=== PATIENT | female | born 1955 | race Caucasian/White ===

== ENCOUNTER → 2019-05-31 08:12 | Outpatient (CLI) | payer SELFPAY ==
--- NOTE | 2019-05-31 08:25 | CT_ITS ---
PROCEDURE: CT HEART W CALCIUM SCORE Patient Age:63Y CLINICAL HISTORY: SCREENING family history of diabetes heart disease AFib. COMPARISON: No exams were available for comparison TECHNIQUE: Limited axial images obtained through the heart for the purposes of calcium scoring All CT scans at the facility use one or more dose reduction, viz: automated exposure control, ma/kV adjustment per patient size (including targeted exams where dose is matched to indication, i.e. head), or iterative reconstruction technique. FINDINGS: Total coronary artery calcium score = 214 This reflects moderate plaque burden and correlates with high cardiovascular disease CVD risk Also note majority of this dense calcified plaque is at significant location involves the origin and proximal LAD and is origin with dense calcified plaque extending from LAD through junction to the left main Right coronary with with a dense focus of plaque proximal and another more inferiorly. Most likely a right-dominant heart but no additional significant findings no pericardial effusion b Calcified granuloma at the right middle lobe anteriorly IMPRESSION: Total Coronary Artery Calcium Score = 214 This reflects moderate plaque burden;... And correlates with High cardiovascular disease CVD risk Dictated by: Nicko Nicole MD 06/01/2019 23:57 Electronically signed by Nicko Nicole MD in [facility] 06/01/2019 23:57
== END ==
PROVIDERS: PCP Nurse Practitioner Family; Visit Provider Internal Medicine Cardiovascular Disease
DX: Z13.6 Encounter for screening for cardiovascular disorders (principal)
CPT/HCPCS: 75571

== ENCOUNTER → 2019-06-24 15:48 | Outpatient (CLI) | payer MEDICARE, SELFPAY ==
--- NOTE | 2019-06-24 15:53 | MM_ITS ---
PROCEDURE: MM DIG SCREENING MAMM BI W/CAD CLINICAL INDICATION: SCREENING There is no personal or family history of breast cancer. COMPARISON: Digital Mammography, Screening=Y from 05/23/2013 MAMMO DIAGNOSTIC BILATERAL from 05/22/2015 DMSB DIG MAMM-SCREEN XENIA W/CAD from 06/08/2017 TECHNIQUE: Standard CC and MLO images were obtained. R2 CAD reviewed. FINDINGS: Moderate diffuse fibroglandular densities are seen in the subareolar regions and central portions of both breasts. Are scattered benign-appearing micro and macrocalcifications. There are stable fatty replaced nodes low in right axillary tail. There are similar somewhat low-lying fatty replaced nodes axillary tail left breast. There is no new or suspicious lesion in either breast and no suspicious microcalcifications. IMPRESSION: Fibrofatty parenchyma with no suspicious lesions seen BI-RAD Category: 2 Benign Finding(s) FOLLOW-UP: 1YR 1 Year Follow-up (A letter has been sent to the patient regarding results of the study.) Dictated by: Dr. Anton Suarez MD 06/26/2019 19:[address] Anton Suarez MD in [facility] 06/26/2019 19:29
== END ==
PROVIDERS: PCP Nurse Practitioner Family; Referring Provider Family Medicine; Visit Provider Family Medicine
DX: Z12.31 Encounter for screening mammogram for malignant neoplasm of breast (principal)
CPT/HCPCS: 77067

== ENCOUNTER → 2020-02-06 08:57 | Outpatient (CLI) | payer MEDICARE, SELFPAY ==
--- NOTE | 2020-02-06 09:01 | XR_ITS ---
PROCEDURE: XR DEXA AXIAL SKELETON CLINICAL HISTORY: POST MENOPAUSAL COMPARISON: No exams were available for comparison FINDINGS: Right femoral neck density is 0.677 grams/centimeters sq with a T-score -1 point, osteopenia Left femoral neck density is 0.795 g cm squared with a T-score -0.5, normal L1-L4 density is 0.894 g cm sq with T-score -1.4, osteopenia IMPRESSION: Osteopenia with moderate fracture risk. Treatment advised. Suggest follow-up exam 2 years Dictated by: Primo Davenport MD 02/06/2020 14:12 Electronically signed by Primo Davenport MD in [facility] 02/06/2020 14:12
== END ==
PROVIDERS: PCP Nurse Practitioner Family; Visit Provider Nurse Practitioner Family
DX: Z13.820 Encounter for screening for osteoporosis (principal); Z78.0 Asymptomatic menopausal state
CPT/HCPCS: 77080

== ENCOUNTER → 2021-02-26 08:16 | Outpatient (CLI) | payer MEDICARE, SELFPAY ==
--- NOTE | 2021-02-26 08:21 | MM_ITS ---
PROCEDURE INFORMATION: Exam: MG Screening 3D Mammography Exam date and time: 02/26/2021 8:21 AM Age: 65 years old Clinical indication: Encounter for screening mammogram for malignant neoplasm of breast TECHNIQUE: Imaging protocol: Screening tomosynthesis and 2D mammography including computer-aided detection (CAD) when performed. COMPARISON: 1. MG MM DIG SCREENING MAMM BI W/CAD 06/24/2019 4:21 PM 2. MG DMSB DIG MAMM-SCREEN XENIA W/CAD 06/08/2017 9:00 AM FINDINGS: MAMMOGRAPHY: Breast composition: The breast tissue is composed of scattered areas of fibroglandular density. Mass: None. Architectural distortion: None. Calcifications: No suspicious calcifications. Asymmetric density: None. Skin thickening: None. Axillary adenopathy: None. IMPRESSION: No mammographic evidence of malignancy. Annual screening is recommended unless otherwise clinically indicated. ASSESSMENT: BI-RADS Category 1: Negative
== END ==
PROVIDERS: PCP Nurse Practitioner Family; Visit Provider Nurse Practitioner Family
DX: Z12.31 Encounter for screening mammogram for malignant neoplasm of breast (principal)
CPT/HCPCS: 77063; 77067

== ENCOUNTER → 2021-04-06 16:39 | Outpatient (CLI) | payer MEDICARE, SELFPAY ==
--- NOTE | 2021-04-06 16:40 | MR_ITS ---
PROCEDURE: MR HEAD/BRAIN WO CON CLINICAL INDICATION: LEFT SIDED HEADACHE COMPARISON: No exams were available for comparison TECHNIQUE: Routine multiplanar multi echo sequences are performed without gadolinium enhancement. FINDINGS: No midline shift, mass effect, intracranial hemorrhage, or hydrocephalus is evident. The cerebellopontine angles, cerebellum, and brainstem have an unremarkable appearance. No large aneurysms apparent. Unremarkable white matter signal intensity. Partial empty sella noted as a normal variant. The optic chiasm, corpus callosum and craniocervical junction have an unremarkable appearance. No mastoid effusion or sinus air-fluid level. Unremarkable appearing orbits IMPRESSION: No acute intracranial findings. Negative MRI of the brain without contrast. Dictated by: Primo Davenport MD 04/07/2021 06:41 Primo Davenport MD in [facility] 04/07/2021 06:41
== END ==
PROVIDERS: PCP Nurse Practitioner Family; Visit Provider Nurse Practitioner Family
DX: R51.9 Headache, unspecified (principal)
CPT/HCPCS: 70551

== ENCOUNTER → 2022-04-18 11:03 | Outpatient (CLI) | payer MEDICARE, SELFPAY | PROVIDERS: PCP Nurse Practitioner Family; Visit Provider Nurse Practitioner Family | DX: U07.1 COVID-19 (principal); R50.9 Fever, unspecified | CPT/HCPCS: C9803; U0003; U0005 ==

== ENCOUNTER → 2022-06-14 09:23 | Outpatient (POV) | payer MEDICARE, SELFPAY | PROVIDERS: Visit Provider Dermatology | DX: Z00.00 Encounter for general adult medical examination without abnormal findings (principal) ==

== ENCOUNTER → 2023-06-21 09:00 | Outpatient (CLI) | payer MEDICARE, SELFPAY ==
[2023-06-21 11:29] LABS: Hemoglobin A1C 7.1 % (4.0-6.0)
[2023-06-21 12:20] LABS: Alanine Aminotransferase 20 U/L (12-78); Albumin Level 4.4 g/dl (3.5-5.0); Albumin/Globulin Ratio 1.9 (1.1-1.8); Alkaline Phosphatase 141 U/L (38-126); Anion Gap 16.3 mEq/L (5-15); Aspartate Amino Transferase 30 U/L (14-36); Bilirubin,Total 0.5 mg/dl (0.2-1.3); Blood Urea Nitrogen 14 mg/dl (7-17); Calcium 9.3 mg/dl (8.4-10.2); Carbon Dioxide 25 mmol/L (22.0-30.0); Chloride 101 mmol/L (98-107); Chol/HDL Ratio 1.8 (1-3.5); Cholesterol 163 mg/dl (140-200); Estimated Glomerular Filt Rate 122 ml/min (>60); GFR (African American) 148 ML/MIN (>60); Globulin 2.3 g/dL (1.3-3.2); Glucose 159 mg/dl (74-100); HDL Cholesterol 90 mg/dl (40-60); Potassium 4.3 mmoL/L (3.5-5.1); Sodium 138 mmol/L (136-145); Total Protein,Serum 6.7 g/dl (6.3-8.2); Triglycerides 51 mg/dl (30-150); VLDL Cholesterol 10 mg/dL (0-40)
[2023-06-21 12:31] LABS: Direct LDL Cholesterol 77.74 mg/dL (100-129)
[2023-06-21 12:49] LABS: Thyroid Stimulating Hormone 0.82 uIU/mL (0.465-4.68)
== END ==
PROVIDERS: PCP Nurse Practitioner Family; Visit Provider Nurse Practitioner Family
DX: E11.9 Type 2 diabetes mellitus without complications (principal); E78.5 Hyperlipidemia, unspecified; Z79.84 Long term (current) use of oral hypoglycemic drugs
CPT/HCPCS: 80053; 80061; 82043; 83036; 84443

== ENCOUNTER → 2023-07-11 09:33 | Outpatient (CLI) | payer MEDICARE, SELFPAY ==
--- NOTE | 2023-07-11 09:34 | MM_ITS ---
PROCEDURE INFORMATION: Exam: MG Bilateral Screening 3D Mammography Exam date and time: 07/11/2023 9:37 AM Age: 68 years old Clinical indication: Screening examination TECHNIQUE: Imaging protocol: Bilateral Screening tomosynthesis and 2D mammography including computer-aided detection (CAD) when performed. COMPARISON: 1. MG MM DIG SCREENING MAMM BI W/CAD 02/26/2021 8:26 AM 2. MG MM DIG SCREENING MAMM BI W/CAD 06/24/2019 4:21 PM FINDINGS: MAMMOGRAPHY: Breast composition: There are scattered areas of fibroglandular density. Mass: None. Architectural distortion: None. Calcifications: No suspicious calcifications. Asymmetric density: None. Skin thickening: None. Axillary adenopathy: None. IMPRESSION: No mammographic evidence of malignancy. Annual screening is recommended unless otherwise clinically indicated. ASSESSMENT: BI-RADS Category 1: Negative
== END ==
PROVIDERS: PCP Nurse Practitioner Family; Visit Provider Nurse Practitioner Family
DX: Z12.31 Encounter for screening mammogram for malignant neoplasm of breast (principal)
CPT/HCPCS: 77063; 77067

== ENCOUNTER 2023-09-25 12:35 | Outpatient (CLI) | payer MEDICARE, SELFPAY ==
[2023-09-25 13:15] LABS: Alanine Aminotransferase 22 U/L (12-78); Albumin Level 4.4 g/dl (3.5-5.0); Albumin/Globulin Ratio 2.1 (1.1-1.8); Alkaline Phosphatase 133 U/L (38-126); Anion Gap 14.1 mEq/L (5-15); Aspartate Amino Transferase 26 U/L (14-36); Bilirubin,Total 0.5 mg/dl (0.2-1.3); Blood Urea Nitrogen 14 mg/dl (7-17); Calcium 9.3 mg/dl (8.4-10.2); Carbon Dioxide 24 mmol/L (22.0-30.0); Chloride 104 mmol/L (98-107); Chol/HDL Ratio 2.5 (1-3.5); Cholesterol 188 mg/dl (140-200); Estimated Glomerular Filt Rate 122 ml/min (>60); GFR (African American) 148 ML/MIN (>60); Globulin 2.1 g/dL (1.3-3.2); Glucose 155 mg/dl (74-100); HDL Cholesterol 75 mg/dl (40-60); Potassium 4.1 mmoL/L (3.5-5.1); Sodium 138 mmol/L (136-145); Total Protein,Serum 6.5 g/dl (6.3-8.2); Triglycerides 87 mg/dl (30-150); VLDL Cholesterol 17 mg/dL (0-40)
[2023-09-25 13:26] LABS: Direct LDL Cholesterol 87.36 mg/dL (100-129)
[2023-09-25 20:48] LABS: Hemoglobin A1C 7.5 % (4.0-6.0)
== END 2023-09-25 23:59 ==
LOC: LAB.DROPOF 12:36
PROVIDERS: PCP Nurse Practitioner Family; Visit Provider Nurse Practitioner Family
DX: E11.9 Type 2 diabetes mellitus without complications (principal); R31.9 Hematuria, unspecified; E78.5 Hyperlipidemia, unspecified; I10 Essential (primary) hypertension; Z79.84 Long term (current) use of oral hypoglycemic drugs; Z79.899 Other long term (current) drug therapy; B96.89 Other specified bacterial agents as the cause of diseases classified elsewhere
CPT/HCPCS: 80053; 80061; 82043; 83036; 87086

== ENCOUNTER 2023-10-10 12:45 | Outpatient (CLI) | payer MEDICARE, SELFPAY ==
[2023-10-10 12:47] LABS: Microscopic, Urine URINE MICROSCOPIC (MICROSCOPIC)
[2023-10-10 13:14] LABS: Appearance,Urine CLEAR (Clear); Bilirubin,Urine Negative (Negative); Blood, Urine Negative (Negative); Color,Urine YELLOW (Yellow); Glucose,Urine (UA) 3+ (Negative); Ketones,Urine Negative (Negative); Leukocyte Esterase,Urine Negative (Negative); Nitrate,Urine Negative (Negative); PH,Urine 6.5 (5.0-8.5); Protein,Urine Negative (Negative); Specific Gravity, Urine 1.015 (1.005-1.030); Urobilinogen,Urine 0.2 EU/dl (0.2)
[2023-10-10 13:37] LABS: Bacteria,Urine Trace /lpf; Microalbumin < 6.000 mg/L (0-16.7); Squamous Epithelial Cell,Urine Occasional #/hpf (0-5)
[2023-10-10 13:41] LABS: Creatinine,Urine Random 33 mg/dL (Not Estab.)
== END 2023-10-10 23:59 ==
PROVIDERS: PCP Nurse Practitioner Family; Visit Provider Nurse Practitioner Family
DX: E11.9 Type 2 diabetes mellitus without complications (principal); R30.0 Dysuria; B96.89 Other specified bacterial agents as the cause of diseases classified elsewhere; Z79.84 Long term (current) use of oral hypoglycemic drugs
CPT/HCPCS: 81001; 82043; 82570; 87086

== ENCOUNTER 2023-11-21 07:20 | Emergency (ER) | payer MEDICARE, SELFPAY ==
[2023-11-21 07:22] VITALS: BP 195/94; PULSE 120; RESP 15; TEMP 36.7; O2SAT 98
[2023-11-21 07:32] LABS: Microscopic, Urine URINE MICROSCOPIC (MICROSCOPIC)
--- NOTE | 2023-11-21 07:32 | CT_ITS ---
FINAL REPORT TECHNIQUE: Axial images through the abdomen and pelvis were performed without contrast. This study was performed with techniques to keep radiation doses as low as reasonably achievable, (ALARA). Individualized dose reduction techniques using automated exposure control or adjustment of mA and/or kV according to the patient's size were employed. CLINICAL HISTORY: L flank/groin pain, dysuria, h/o stones FINDINGS: ABDOMEN: There is calcified granuloma in the right middle lobe. There is mild bronchiectasis in the right lung base. The heart size is normal. Limited images of the liver are unremarkable. There is sludge in the gallbladder. There are calcified granulomas in the spleen. No adrenal mass is identified. The aorta is normal in caliber. There is no significant free fluid or adenopathy. There are multiple bilateral nonobstructing kidney stones measuring up to 11 mm. Periampullary duodenal diverticulum is seen measuring 4 cm in greatest dimension. There is an obstructing stone in the distal left ureter measuring up to 3 mm well seen on image 92 of series 3. There is mild to moderate left hydronephrosis. PELVIS: The appendix is normal. The urinary bladder is decompressed. There is no significant free fluid or adenopathy. IMPRESSION: Left hydronephrosis secondary to an obstructing distal left ureteral stone. Bilateral nephrolithiasis. Reviewed, Interpreted and Dictated by Rinku Thorpe MD Transcribed by Kriss Mcpherson Authenticated and [facility]
[2023-11-21 07:37] LABS: Bilirubin,Urine Negative (Negative); Blood, Urine 3+ (Negative); Glucose,Urine (UA) 3+ (Negative); Ketones,Urine 1+ (Negative); Leukocyte Esterase,Urine Negative (Negative); Nitrate,Urine Negative (Negative); PH,Urine 5.5 (5.0-8.5); Protein,Urine Negative (Negative); Urobilinogen,Urine 0.2 EU/dl (0.2)
--- NOTE | 2023-11-21 07:38 | HMH.EDGENADL ---
Discharge Plan Disposition Patient Disposition: Home, Self-Care Condition: Good Prescriptions Prescriptions: New ketorolac 10 mg tablet 10 mg PO Q8H PRN (Reason: pain) 1 Days Qty: 14 0RF oxycodone 5 mg tablet 5 mg PO Q6H PRN (Reason: pain) Qty: 12 0RF ondansetron HCl 4 mg tablet 4 mg PO Q8H PRN (Reason: nausea and vomiting) 4 Days Qty: 12 0RF tamsulosin [Flomax] 0.4 mg capsule 0.4 mg PO DAILY Qty: 7 0RF No Action metformin 1,000 mg tablet 1,000 mg PO BID pioglitazone 30 mg tablet 30 mg PO DAILY metoprolol succinate 25 mg tablet extended release 24 hr PO simvastatin 10 mg tablet 10 mg PO DAILY Jardiance 10 mg tablet 10 mg PO DAILY 90 Days Qty: 90 3RF (DME) Dexcom G7 Sensor Device See Rx Instructions .ROUTE .MEDSUPPLY Qty: 9 3RF Rx Instructions: As directed, change every 10 days Referrals Follow up/Referrals: Dorothy Donahue APRN [Primary Care Provider] - See instructions Activity Restrictions/Add. Instructions Additional Instructions/Restrictions: You were evaluated in the emergency department today. At this time, you were found to have a kidney stone on your left. It is 3 mm, so it is likely to pass on its own. Please return to an emergency department right away if you have any symptoms such as fever greater than 100.4 ?F, significant worsening of pain, or intractable nausea and vomiting. Please drink plenty of fluids and make sure that you are staying hydrated. 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 You may also take Tylenol in addition to these medications as needed for pain. Do not drive or operate heavy machinery while taking oxycodone, as it is a narcotic chronic pain medication. I have arranged for you to see Dr. Emerson in clinic tomorrow 11/22/23 at 1:30 pm in [place]. [address] [place] [address] [address], [place] [address] Clinical Impressions Clinical Impression: Calculus of left ureter Instructions Patient Instructions: DI for Kidney Stones Discharge ED Provider: Tawnya Lopez General Adult HPI General Chief complaint: Abdominal Pain Stated complaint: pelvic pain, pain when urinating Time Seen by Provider: 11/21/23 07:27 Mode of Arrival: Ambulatory Source of Information: Patient Limitations: No Limitations Description of Symptoms (Recalled from ER Triage Doc. by RN): pt reports left groin pain began last night. pt reports no history of kidney stones. pain radiates down into thigh. History of Present Illness HPI narrative: This patient is a 68-year-old female with a history of hypertension, hyperlipidemia, diabetes, and ANGELY presenting to the emergency department for evaluation with concern for left flank pain radiating around to her groin. Patient states that this started last night and woke her up from sleep. She notes that she thought maybe it was musculoskeletal pain, but she was unable to get comfortable and was unable to sleep as a result of this. She also notes that she has had urinary frequency as well as nonbloody diarrhea. She states the pain was so severe that she had an episode of emesis. She also was experiencing chills. No true fevers noted. No cough, congestion, or other concerns noted. She did not take any medications prior to arrival. Related Data Home Medications Medication Instructions Recorded Confirmed metformin 1,000 mg tablet 1,000 mg PO BID 06/21/23 10/10/23 metoprolol succinate 25 mg mg PO 06/21/23 10/10/23 tablet,extended release 24 hr pioglitazone 30 mg tablet 30 mg PO DAILY 06/21/23 10/10/23 simvastatin 10 mg tablet 10 mg PO DAILY 06/21/23 10/10/23 Previous Rx's Medication Instructions Recorded blood-glucose sensor (Dexcom G7 #9 ea 10/16/23 Sensor device) empagliflozin 10 mg tablet 10 mg PO DAILY 90 days #90 tabs 10/16/23 (Jardiance) ketorolac 10 mg tablet 10 mg PO Q8H PRN pain 1 day #14 11/21/23 tabs ondansetron HCl 4 mg tablet 4 mg PO Q8H PRN nausea and 11/21/23 vomiting 4 days #12 tabs oxycodone 5 mg tablet 5 mg PO Q6H PRN pain #12 tabs 11/21/23 tamsulosin 0.4 mg capsule (Flomax) 0.4 mg PO DAILY #7 caps 11/21/23 Allergies Allergy/AdvReac Type Severity Reaction Status Date / Time iodine [IODINE] Allergy Mild Verified 10/10/23 09:09 shellfish derived Allergy Unknown ANAPHYLAXIS Verified 10/10/23 09:09 [From SHELLFISH (FOOD/DRUG)] From SHELLFISH (FOOD/DRUG) Allergy Unknown ANAPHYLAXIS Uncoded 10/10/23 09:09 [facility] Disclaimer: The information contained in this section may have been updated after the patient was seen, as this information can be updated by other users. Medical History Plantar fasciitis Diabetes mellitus type 2, controlled Sleep apnea Surgical History History of hysterectomy History of Family History Family/Other Cancer Diabetes Social History Smoking Status: Never smoker alcohol intake: never current occupational status: retired Travel in the last 8 weeks: None ROS Obtained: Yes All systems reviewed & no additional complaints except as documented Physical Exam General General appearance: alert and in no apparent distress Head Head exam: atraumatic and normocephalic Eye Eye exam: Present normal appearance, PERRL and EOMI ENT ENT exam: Present normal exam, normal oropharynx, mucous membranes moist and normal external ear exam Neck Neck exam: Present normal inspection, full ROM and trachea midline; Absent tenderness Chest Chest inspection: Present normal inspection and symmetric chest wall rise; Absent tenderness Respiratory Respiratory exam: Present normal lung sounds bilaterally; Absent respiratory distress, wheezes, stridor or accessory muscle use Cardiovascular Cardiovascular exam: Present regular rate and normal rhythm Abdominal Exam Abdominal exam: Present soft; Absent distention, tenderness or guarding Extremities Exam Extremities exam: Present normal inspection, full ROM and normal capillary refill; Absent tenderness or edema Back Exam Back exam: Present normal inspection and full ROM; Absent tenderness Neurological Exam Neurological exam: Present alert, oriented X3, CN II-XII intact and normal gait; Absent motor sensory deficit Psychiatric Psychiatric exam: Present normal affect and normal mood Skin Skin exam: Present warm and dry Medical Decision Making Medical Records Medical records reviewed: Yes I reviewed the patient's medical records. Bill Inquiry Pt receiving controlled substance: No Vital Signs: 11/21/23 07:22 11/21/23 08:00 11/21/23 08:30 Temperature 98.1 F Temperature Source Oral Pulse Rate 111 H 106 H Pulse Rate [Left Radial] 120 H Respiratory Rate 15 Blood Pressure 132/65 126/67 Blood Pressure [Right Arm] 195/94 H Blood Pressure Mean 105 95 Blood Pressure Mean [Right Arm] 127 02 Sat by Pulse Oximetry 98 98 96 Oxygen Delivery Method Room Air Lab Data Lab results reviewed: Yes I reviewed the patient's lab results. Lab Results 11/21/23 07:25: Urine Color Yellow, Urine Appearance Cloudy, Urine pH 5.5, Ur Specific [place] 1.020, Urine Protein Negative, Urine Glucose (UA) 3+, Urine Ketones 1+, Urine Blood 3+, Urine Nitrate Negative, Urine Bilirubin Negative, Urine Urobilinogen 0.2, Ur Leukocyte Esterase Negative, Urine RBC Tntc, Urine WBC 5-10, Ur Squamous Epith Cells 10-20, Urine Bacteria 1+ 11/21/23 07:40: WBC 12.0 H, RBC 5.13, Hgb 15.2, Hct 46.3, MCV 90.4, MCH 29.6, MCHC 32.7, RDW 14.1, Plt Count 233, MPV 8.8, Neut % (Auto) 87.4 H, Lymph % (Auto) 8.7 L, [place] % (Auto) 3.1, Eos % (Auto) 0.3, Baso % (Auto) 0.5, Neut # (Auto) 10.5 H, Lymph # (Auto) 1.0, [place] # (Auto) 0.4, Eos # (Auto) 0.0, Baso # (Auto) 0.1, Sodium 136, Potassium 4.0, Chloride 104, Carbon Dioxide 25, Anion Gap 11.0, BUN 16, Creatinine 0.60, Estimated Creat Clear 58, Estimated GFR 99, Est GFR ( Amer) 120, Glucose 270 H, Calcium 9.6, Total Bilirubin 0.5, AST 32, ALT 25, Alkaline Phosphatase 170 H, Total Protein 6.7, Albumin 4.4, Globulin 2.3, Albumin/Globulin Ratio 1.9 H 11/21/23 07:40 11/21/23 07:40 Orders (Tests/Meds): ED MEDICATIONS Discontinued Medications Generic Name Dose Route Start Last Admin Trade Name Freq PRN Reason Stop Dose Admin Acetaminophen 1,000 mg 11/21/23 07:32 11/21/23 08:00 Acetaminophen 500mg Tab PO 11/21/23 07:33 1,000 mg ONCE ONE Administration Lactated Ringer's 1,000 mls @ 999 mls/hr 11/21/23 07:32 11/21/23 08:01 Lactated Ringer's 1000 Ml Bag IV 11/21/23 08:32 999 mls/hr .Q1H1M ONE Administration Ketorolac Tromethamine 15 mg 11/21/23 07:32 11/21/23 08:01 Ketorolac 30mg/Ml Vial IV 11/21/23 07:33 15 mg ONCE ONE Administration Ondansetron HCl 4 mg 11/21/23 07:41 11/21/23 08:01 Ondansetron 4mg/2ml Vial IV 11/21/23 07:42 4 mg ONCE ONE Administration ORDERS Category Date Time Status CT abdomen pelvis wo con Stat Cat Scan 11/21/23 07:32 Completed Complete Blood Count Auto Diff Stat Lab 11/21/23 07:40 Results Comprehensive Metabolic Panel Stat Lab 11/21/23 07:40 Completed UA [Urinalysis and Microscopic] Stat Lab 11/21/23 07:25 Completed Urine Culture Stat Micro 11/21/23 07:32 Ordered Medical Decision Narrative: In summary, this patient is a 68-year-old female presenting to the Emergency Department for evaluation of left flank pain radiating to the groin, urinary frequency, and diarrhea. Differential diagnoses considered include but are not limited to cystitis, pyelonephritis, ureterolithiasis, diverticulitis, colitis, gastroenteritis. Ruling out the most morbid conditions drove assessment. On exam, the patient is mildly hypertensive and tachycardic, but abdominal exam is benign with no focal tenderness. She is nontoxic-appearing. Workup included CBC, CMP, urinalysis, urine culture, and CT abdomen and pelvis without IV contrast. She was given a bolus of IV fluids as well as IV Toradol, oral Tylenol, and IV Zofran. I independently interpreted CT scan prior to the radiologist read and noted obstructive left ureteral stone. Please see their read for final interpretation. Stone is 3 mm, so she could potentially pass on its own. Labs were obtained that demonstrated very mild leukocytosis of 12, which could be leukemoid reaction from the patient's vomiting and pain. She is afebrile here, and vitals are normal after improvement in pain with no tachycardia or hypertension. Urinalysis is mildly contaminated with squamous cells, however it does not contain nitrates and is not suggestive of infected stone at this time. Urine culture was sent and is pending. On reassessment, patient had good improvement after administration of medications above. She is resting comfortably with no pain at this time. She is high risk because she is diabetic, but I do feel that she is appropriate for discharge with close follow-up with urology given the size of the stone and reassuring labs. Patient was given prescriptions for Flomax, Toradol, oxycodone, and Zofran as well as instructions for use. I asked if she has a urologist that she prefers, and she advised she would like to see Dr. Emerson in [place]. I called his office and arrange for the patient to be seen tomorrow at 1:30 PM in clinic. Patient is agreeable with this. At this time, patient was seen to be appropriate for discharge. She was given strict return precautions, such as fever, worsening pain, intractable nausea and vomiting, and she was discharged in stable condition with plan for close follow-up. Critical Care Critical Care Time Critical Care Time: No
[2023-11-21 07:43] LABS: Appearance,Urine Cloudy (Clear); Color,Urine Yellow (Yellow)
[2023-11-21 08:00] VITALS: BP 132/65; PULSE 111; O2SAT 98
[2023-11-21] MEDS: ACETAMINOPHEN 500MG TAB 1000 MG PO (08:00)
[2023-11-21 08:01] LABS: Basophils # 0.1 K/mm3 (0-0.2); Basophils % 0.5 % (0.1-2.0); Eosinophils % 0.3 % (0.1-12.0); Hematocrit 46.3 % (37.0-47.0); Hemoglobin 15.2 g/dL (12.2-16.2); Lymphocytes % 8.7 % (10-50); Mean Corpuscular HGB Conc 32.7 g/dL (31.8-35.4); Mean Corpuscular Hemoglobin 29.6 pg (27.0-31.2); Mean Corpuscular Volume 90.4 fl (81-99); Mean Platelet Volume 8.8 fl (7.4-10.4); Monocytes # 0.4 K/mm3 (0.1-1.0); Monocytes % 3.1 % (1.7-9.3); Neutrophils # 10.5 K/mm3 (1.8-7.8); Neutrophils % 87.4 % (37.0-80.0); Platelet Count 233 K/mm3 (142-424); Red Blood Count 5.13 M/mm3 (4.20-5.40); Red Cell Distribution Width 14.1 % (11.5-17.5)
[2023-11-21] MEDS: LACTATED RINGERS 1000ML 1,000 ML 999 ML IV (08:01)
[2023-11-21] MEDS: KETOROLAC 30MG/ML VIAL 15 MG IV (08:01)
[2023-11-21] MEDS: ONDANSETRON 4MG/2ML VIAL 4 MG IV (08:01)
[2023-11-21 08:06] LABS: Alanine Aminotransferase 25 U/L (12-78); Albumin Level 4.4 g/dl (3.5-5.0); Albumin/Globulin Ratio 1.9 (1.1-1.8); Alkaline Phosphatase 170 U/L (38-126); Aspartate Amino Transferase 32 U/L (14-36); Bilirubin,Total 0.5 mg/dl (0.2-1.3); Blood Urea Nitrogen 16 mg/dl (7-17); Calcium 9.6 mg/dl (8.4-10.2); Carbon Dioxide 25 mmol/L (22.0-30.0); Chloride 104 mmol/L (98-107); Creatinine Clearance Estimated 58 mL/min (50-200); Estimated Glomerular Filt Rate 99 ml/min (>60); GFR (African American) 120 ML/MIN (>60); Globulin 2.3 g/dL (1.3-3.2); Glucose 270 mg/dl (74-100); Sodium 136 mmol/L (136-145); Total Protein,Serum 6.7 g/dl (6.3-8.2)
[2023-11-21 08:10] LABS: MANUAL DIFFERENTIAL MANUAL DIFFERENTIAL (MANUAL DIFF)
[2023-11-21 08:12] LABS: RBC,Urine TNTC #/hpf (0-3)
[2023-11-21 08:14] LABS: Bacteria,Urine 1+ /lpf
[2023-11-21 08:30] VITALS: BP 126/67; PULSE 106; O2SAT 96
[2023-11-21 09:00] VITALS: BP 122/67; PULSE 86; O2SAT 98
[2023-11-21 09:12] LABS: Lymphocytes % 9 % (10-50); Monocytes % 3 % (2-9); Neutrophils % 88 % (42-76); Total Cells Counted 100
[2023-11-21 09:13] LABS: Platelet Estimate Normal; RBC Morphology Normal
[2023-11-21 09:44] VITALS: BP 122/67; PULSE 86; RESP 16; TEMP 36.7
== END 2023-11-21 09:47 | disposition home or self-care (01) ==
PROVIDERS: Emergency Provider Emergency Medicine; PCP Nurse Practitioner Family
DX: N13.0 Hydronephrosis with ureteropelvic junction obstruction; R10.2 Pelvic and perineal pain; B96.89 Other specified bacterial agents as the cause of diseases classified elsewhere; E11.9 Type 2 diabetes mellitus without complications; E78.5 Hyperlipidemia, unspecified; I10 Essential (primary) hypertension; Z79.84 Long term (current) use of oral hypoglycemic drugs
CPT/HCPCS: 74176; 80053; 81001; 85007; 85025; 87086; 96361; 96374; 96375; 99284; J2405

== ENCOUNTER 2023-12-26 11:47 | Outpatient (CLI) | payer MEDICARE, SELFPAY ==
[2023-12-26 13:04] LABS: Alanine Aminotransferase 22 U/L (12-78); Albumin Level 4.6 g/dl (3.5-5.0); Alkaline Phosphatase 143 U/L (38-126); Anion Gap 13.7 mEq/L (5-15); Aspartate Amino Transferase 32 U/L (14-36); Bilirubin,Total 0.6 mg/dl (0.2-1.3); Blood Urea Nitrogen 15 mg/dl (7-17); Calcium 9.7 mg/dl (8.4-10.2); Carbon Dioxide 25 mmol/L (22.0-30.0); Chloride 106 mmol/L (98-107); Estimated Glomerular Filt Rate 122 ml/min (>60); GFR (African American) 148 ML/MIN (>60); Globulin 2.3 g/dL (1.3-3.2); Glucose 174 mg/dl (74-100); Phosphorous 3.8 mg/dl (2.5-4.5); Potassium 4.7 mmoL/L (3.5-5.1); Sodium 140 mmol/L (136-145); Total Protein,Serum 6.9 g/dl (6.3-8.2)
== END 2023-12-26 23:59 | disposition home or self-care (01) ==
LOC: LAB.DROPOF 11:49
PROVIDERS: PCP Nurse Practitioner Family; Visit Provider Nurse Practitioner Family
DX: N20.0 Calculus of kidney (principal); R30.0 Dysuria; N20.1 Calculus of ureter; B37.9 Candidiasis, unspecified; E11.9 Type 2 diabetes mellitus without complications; Z79.899 Other long term (current) drug therapy
CPT/HCPCS: 80053; 84100; 87086

== ENCOUNTER 2024-01-01 10:25 | Outpatient (CLI) | payer MEDICARE, SELFPAY ==
--- NOTE | 2024-01-01 10:25 | US_ITS ---
FINAL REPORT TECHNIQUE: Ultrasound images of the kidneys and bladder were obtained. CLINICAL HISTORY: kidney stones FINDINGS: The right kidney measures 12.9 cm in length. It is normal in echogenicity. There is no hydronephrosis. The left kidney [id number] cm in length. It is normal in echogenicity. There is no hydronephrosis. There are bilateral renal stones measuring up to 7 mm on the right and 6 mm on the left. IMPRESSION: Bilateral renal stones without hydronephrosis. Reviewed, Interpreted and Dictated by Rashid Gardner III, MD Transcribed by Shi Lorenzo Authenticated and [facility]
== END 2024-01-01 23:59 | disposition home or self-care (01) ==
LOC: RAD 10:25
PROVIDERS: PCP Nurse Practitioner Family; Visit Provider Nurse Practitioner Family
DX: N20.1 Calculus of ureter (principal); N20.0 Calculus of kidney
CPT/HCPCS: 76770

== ENCOUNTER 2024-06-17 13:43 | Outpatient (CLI) | payer MEDICARE, SELFPAY ==
[2024-06-17 13:13] LABS: Albumin Level 4.7 g/dl (3.5-5.0)
[2024-06-17 13:14] LABS: Chloride 104 mmol/L (98-107); Potassium 4.5 mmoL/L (3.5-5.1); Sodium 137 mmol/L (136-145)
[2024-06-17 13:16] LABS: Alanine Aminotransferase 23 U/L (12-78); Aspartate Amino Transferase 32 U/L (14-36); Blood Urea Nitrogen 19 mg/dl (7-17); Estimated Glomerular Filt Rate 122 ml/min (>60); GFR (African American) 148 ML/MIN (>60)
[2024-06-17 13:17] LABS: Alkaline Phosphatase 156 U/L (38-126); Bilirubin,Total 0.6 mg/dl (0.2-1.3); Calcium 9.6 mg/dl (8.4-10.2); Chol/HDL Ratio 2.4 (1-3.5); Cholesterol 212 mg/dl (140-200); Globulin 2.3 g/dL (1.3-3.2); Glucose 168 mg/dl (74-100); HDL Cholesterol 90 mg/dl (40-60); Phosphorous 3.3 mg/dl (2.5-4.5); Triglycerides 80 mg/dl (30-150); VLDL Cholesterol 16 mg/dL (0-40)
[2024-06-17 13:28] LABS: Direct LDL Cholesterol 92.51 mg/dL (100-129)
[2024-06-17 13:40] LABS: Hemoglobin A1C 8.1 % (4.0-6.0)
[2024-06-17 13:48] LABS: Thyroid Stimulating Hormone 0.93 uIU/mL (0.465-4.68)
[2024-06-17 17:44] LABS: Anion Gap 15.5 mEq/L (5-15); Carbon Dioxide 22 mmol/L (22.0-30.0)
[2024-06-17 21:31] LABS: Microalbumin/Creatinine Ratio 16.6
[2024-06-17 21:52] LABS: Creatinine,Urine Random 48 mg/dL (Not Estab.)
== END 2024-06-17 23:59 | disposition home or self-care (01) ==
LOC: LAB.DROPOF 13:44
PROVIDERS: PCP Nurse Practitioner Family; Visit Provider Nurse Practitioner Family
DX: E11.9 Type 2 diabetes mellitus without complications (principal); N20.0 Calculus of kidney; E78.5 Hyperlipidemia, unspecified; I10 Essential (primary) hypertension
CPT/HCPCS: 80053; 80061; 82043; 82570; 83036; 83735; 84100; 84443

== ENCOUNTER 2024-11-27 16:20 | Outpatient (CLI) | payer MEDICARE, SELFPAY | END 2024-11-27 23:59 | disposition home or self-care (01) | LOC: LAB.DROPOF 16:20 | PROVIDERS: PCP Nurse Practitioner Family; Visit Provider Nurse Practitioner Family | DX: R50.9 Fever, unspecified (principal); Z20.822 Contact with and (suspected) exposure to COVID-19 | CPT/HCPCS: 87635 ==

== ENCOUNTER 2024-12-10 09:35 | Outpatient (CLI) | payer MEDICARE, SELFPAY ==
[2024-12-10 13:25] LABS: Basophils % 0.3 % (0.1-2.0); Eosinophils # 0.2 K/mm3 (0.0-0.4); Eosinophils % 1.9 % (0.1-12.0); Hematocrit 45.4 % (37.0-47.0); Hemoglobin 14.8 g/dL (12.2-16.2); Lymphocytes # 1.9 K/mm3 (0.7-4.5); Lymphocytes % 21.2 % (10-50); Mean Corpuscular HGB Conc 32.6 g/dL (31.8-35.4); Mean Corpuscular Hemoglobin 28.1 pg (27.0-31.2); Mean Corpuscular Volume 86.3 fl (81-99); Monocytes # 0.8 K/mm3 (0.1-1.0); Monocytes % 8.8 % (1.7-9.3); Neutrophils # 6.1 K/mm3 (1.8-7.8); Neutrophils % 67.4 % (37.0-80.0); Nucleated Red Blood Cells # 0 10^3/uL; Nucleated Red Blood Cells % 0 %; Platelet Count 337 K/mm3 (142-424); Red Blood Count 5.26 M/mm3 (4.20-5.40); Red Cell Distribution Width 14.1 % (11.5-17.5); Red Cell Distribution Width-SD 43.9 fL
[2024-12-10 13:35] LABS: Creatinine,Urine Random 44 mg/dL (Not Estab.)
[2024-12-10 13:38] LABS: Alanine Aminotransferase 21 U/L (12-78); Albumin Level 4.3 g/dl (3.5-5.0); Albumin/Globulin Ratio 1.5 (1.1-1.8); Alkaline Phosphatase 153 U/L (38-126); Anion Gap 16.4 mEq/L (5-15); Aspartate Amino Transferase 27 U/L (14-36); Bilirubin,Total 0.6 mg/dl (0.2-1.3); Blood Urea Nitrogen 12 mg/dl (7-17); Calcium 9.2 mg/dl (8.4-10.2); Carbon Dioxide 25 mmol/L (22.0-30.0); Chloride 101 mmol/L (98-107); Cholesterol 239 mg/dl (140-200); Estimated Glomerular Filt Rate 122 ml/min (>60); GFR (African American) 147 ML/MIN (>60); Globulin 2.8 g/dL (1.3-3.2); Glucose 166 mg/dl (74-100); HDL Cholesterol 79 mg/dl (40-60); Magnesium 2.1 mg/dl (1.6-2.3); Potassium 4.4 mmoL/L (3.5-5.1); Sodium 138 mmol/L (136-145); Total Protein,Serum 7.1 g/dl (6.3-8.2); Triglycerides 114 mg/dl (30-150); VLDL Cholesterol 23 mg/dL (0-40)
[2024-12-10 13:48] LABS: Microalbumin < 6.000 mg/L (0-16.7)
[2024-12-10 13:50] LABS: Direct LDL Cholesterol 124.51 mg/dL (100-129)
[2024-12-10 14:45] LABS: Vitamin B12 > 1000 pg/mL (239-931)
[2024-12-10 15:08] LABS: Ferritin 61.5 ng/ml (11.1-264)
[2024-12-10 16:42] LABS: Hemoglobin A1C 7.8 % (4.0-6.0)
== END 2024-12-10 23:59 | disposition home or self-care (01) ==
LOC: LAB.DROPOF 12-11 10:04
PROVIDERS: PCP Nurse Practitioner Family; Visit Provider Nurse Practitioner Family
DX: R53.83 Other fatigue (principal); D64.9 Anemia, unspecified; E78.5 Hyperlipidemia, unspecified; E11.9 Type 2 diabetes mellitus without complications; I10 Essential (primary) hypertension; G47.30 Sleep apnea, unspecified; Z68.31 Body mass index [BMI] 31.0-31.9, adult; E66.9 Obesity, unspecified; Z79.84 Long term (current) use of oral hypoglycemic drugs
CPT/HCPCS: 80053; 80061; 82043; 82570; 82607; 82728; 83036; 83735; 85025

== ENCOUNTER 2025-05-19 13:50 | Outpatient (CLI) | payer MEDICARE, SELFPAY ==
--- OUTSIDE RECORDS SUMMARY | 2025-05-19 13:52 | XMS_ITS | Clinical Summary ---
Author Organization [facility] Address [address] [place] [address] Care Team Providers Care Clerical Order Filler Name Role Phone Godfrey Dorothy GOMEZ Primary Care Provider [phone] Allergies Active Allergy Reactions Criticality Noted Date Comments Esomeprazole Magnesium Diarrhea 05/14/2015 Iodine Anaphylaxis High 12/28/2009 Shellfish Allergy Anaphylaxis High 12/27/2011 Sitagliptin Other (See Comments) Medium 10/13/2016 Mood disturbance Statins Itching 12/28/2009 Sulfa Antibiotics Unknown - Low Severity 05/14/2015 Medications multivitamin (THERAGRAN) tablet tablet Daily. Active Tioga-3 Fatty Acids (OMEGA 3 500 PO) Take by mouth Daily. Active Jardiance 10 MG tablet tablet 01/27/2023 Activ e metFORMIN (GLUCOPHAGE) 1000 MG tablet 01/27/2023 Acti ve metoprolol succinate XL (TOPROL-XL) 25 MG 24 hr tablet 01/27/2023 Act terrance pioglitazone (ACTOS) 30 MG tablet 01/27/2023 Active simvastatin (ZOCOR) 10 MG tablet 11/08/2022 Active Vitamin E 400 units tablet Daily. Active ibuprofen (ADVIL,MOTRIN) 800 MG tablet Take 1 tablet by mouth Every 6 (Six) Hours As Needed for Mild Pain. 11/22/2023 Active Continuous Glucose Internet Security Specialist (Dexcom G7 Internet Security Specialist) device Use. Act terrance Active Problems Problem Noted Date Diagnosed Date Preop cardiovascular exam 12/06/2023 Obesity 02/21/2023 ANGELY on CPAP 07/30/2015 Overview (02/21/2023): AHI 66, RDI 86, desatnadir 79% Overview: AHI 66, RDI 86, desatnadir 79% Assessment & Plan (02/26/2025 4:04 PM EDT): - AHI improved from 16 to 1.9. - [place] score is 3. - EKG results are normal. - Increase PAP machine pressure setting from 4 -12 to 6-12 for comfort. - Order for pressure adjustment will be faxed today; adjustment will be done remotely by the company. - Contact office if new setting is uncomfortable or requires further adjustments. - Discussed risks, benefits, and alternatives of increasing pressure setting, including potential discomfort with higher pressure and the option to revert to previous settings if needed. - Benefiting from PAP therapy. Plan to continue. Gastroesophageal reflux disease 07/30/2015 Overview (02/21/2023): Under control with Gaviscon - used nexium for a few years Overview: Under control with Gaviscon - used nexium for a few years Hypercholesterolemia 05/27/2015 Overview (02/21/2023): Not taking Tricor. Taking the Welchol 4 a day Did not tolerate statins - tried Zocor, Lipitor, Crestor, (muscle aches and twitching) Not sure if she took. Last Assessment & Plan: Continue current Crestor and check lab Essential hypertension 05/27/2015 Assessment & Plan (02/26/2025 4:05 PM EDT): - At goal. 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 Last eye exam was Apr 2010 Podiatry: No - has a left ankle problem Last dental appointment: every 6 months Is she on NEHAL inhibitor or angiotensin II receptor chika? Yes Last Assessment & Plan: Continue current medication regimen. Continue more aggressive diet and exercise and monitoring glucose. Check lab Family hx of ischem heart dis and oth dis of the circ sys Mild CAD Encounters Date Type Department Care Team Description 02/26/2025 10:30 AM EDT Office Visit [facility] [address] [address] Samaria Hills, JASON ANGELY on CPAP (Primary Dx); Essential hypertension 02/26/2025 Patient rounding ([facility] [place] only) [facility] [address] [address] Samaria Hills APRN 02/26/2025 Travel from Last 3 Months Immunizations Immunization Administration Dates Next Due Arexvy (RSV, Adults 60+ yrs) 08/11/2023 COVID-19 (MODERNA) 1st,2nd,3 rd Dose Monovalent 11/07/2020,10/10/2020 COVID-19 (MODERNA) BIVALENT 12+YRS 07/05/2022 COVID-19 (MODERNA) Monovalen t Original Booster 04/12/2022,06/23/2021 Flu Vaccine Quad PF >36MO 06/30/2016 Fluad Quad 65+ 05/13/2023,06/02/2021 Fluzone (or Fluarix & Flulav al for VFC) >6mos 06/30/2015 Fluzone High-Dose 65+yrs 04/21/2020 Fluzone Quad >6mos (Multi-dose) 06/24/2015 H1N1 Inj 06/30/2009 Influenza, Unspecified 05/28/2014,06/30/2009 Pneumococcal Conjugate 13-Va lent (PCV13) 10/13/2016,10/13/2016 Pneumococcal Polysaccharide (PPSV23) ,07/15/2009,09/27/2007,09/27 Td (TDVAX) 10/18/2002 Tdap 03/08/2011,03/08/2011 Zostavax 11/18/2013 Zoster, Unspecified 11/18/2013 Family History Relation Name Status Comments Father Mother Alive Sister Alive Social History Tobacco Use Types Packs/Day Years Used Date Smoking Tobacco: Never Passive Smoke Exposure: Past Smokeless Tobacco: Never Tobacco Cessation:Counseling Given: Yes Alcohol Use Standard Drinks/Week Comments Never 0 (1 standard drink = 0.6 oz pur e alcohol) Comments Unknown Sex and Gender Information Value Date Recorded Sex Assigned at Female 02/25/2025 7:16 PM EDT Legal Sex Female 2:18 PM EST Gender Identity Not on file Sexual Orientation Not on file Last Filed Vital Signs Vital Sign Reading Time Taken Comments Blood Pressure 130/70 02/28/2024 10:15 AM EDT Pulse 86 02/28/2024 10:15 AM EDT Temperature - - Respiratory Rate - - Oxygen Saturation 96% 02/28/2024 10:15 AM EDT Inhaled Oxygen Concentration - - Weight 73 kg (161 lb) 02/26/2025 10:38 AM EDT Height 152.4 cm (5') 02/26/2025 10:38 AM EDT Body Mass Index 31.44 02/26/2025 10:38 AM EDT Plan of Treatment Upcoming Encounters Date Type Department Care Team (Late st Contact Info) Description 03/04/2026 10:30 AM EDT Office Visit [facility] [address] [place] [place] [address] Samaria Hills APRN [address] [place] [address] Health Maintenance Due Date Last Done Comments DXA SCAN 1955 DIABETIC EYE EXAM 1963 DIABETIC FOOT EXAM 1965 URINE MICROALBUMIN-CREATININ E RATIO (uACR) 1965 COLOGUARD 1998 COLON CANCER SCREENING 5 YEA R SIGMOIDOSCOPY 1998 CT COLONOGRAPHY 1998 FECAL OCCULT BLOOD TEST 1998 FIT Testing (1 year) 1998 ZOSTER VACCINE (2 of 3) 01/13/2014 11/18/2013, 11/18 COLONOSCOPY 12/15/2014 12/15/2004 COLORECTAL CANCER SCREENING 12/15/2014 MAMMOGRAM 05/22/2017 05/22/2015, 04/29, 05/23/2013, Additional history exists LIPID PANEL 10/13/2017 10/13/2016, 05/28/2010 TDAP/TD VACCINES (4 - Td or Tdap) 03/08/2021 03/08/2011, 03/08/2011, 10/18/2002 Pneumococcal Vaccine 50+ (3 of 3 - PCV20 or PCV21) 10/13/2021 10/13/2016, 10/13/2016, 07/15/2009, Additional history exists ANNUAL WELLNESS VISIT 09/25/2022 HEMOGLOBIN A1C 09/25/2022 10/13/2016 HEPATITIS C SCREENING 09/25/2022 INFLUENZA VACCINE 03/28/2025 04/24/2024, , 06/02/2021, Additional history exists COVID-19 Vaccine (2023-2 5 season) 2025 04/24/2024, 06/28/2023, 07/05/2022, Additional history exists Procedures Procedure Name Priority Date/Time Associated Diagnosis Comments ECG 12-LEAD Routine 02/26/2025 4:08 PM EDT Essential hypertension from Last 3 Months Results * ECG 12-LEAD (02/26/2025 4:08 PM EDT) Narrative Svetlana Baum RegSched Rep - 02/26/2025 4:08 PM EDT Samaria Hills APRN 02/26/2025 4:08 PM ECG 12 Lead Date/Time: 02/26/2025 4:08 PM Performed by: Samaria Hills APRN Authorized by: Samaria Hills APRN Comparison: compared with previous ECG from 12/06/2023 Similar to previous ECG Rhythm: sinus rhythm Rate: normal BPM: 82 ST Segments: ST segments normal T Waves: T waves normal QRS axis: normal Other: no other findings Other findings: non-specific ST-T wave changes Clinical impression: abnormal EKG Procedure Note Samaria Hills APRN - 02/26/2025 10:30 AM EDT Images from the original note were not included. Date: 02/26/2025 Name: Prachi Bosch : 1955 PCP: Dorothy Donahue APRN REF: No ref. provider found Sleep and/or Cardiology Consulting Provider Note ..Sleep Apnea (Pt states she uses her pap machine nightly. She deniesissues with equipment.) History of Present Illness The patient is a 69-year-old female who presents for an annual follow-upon known obstructive sleep apnea (ANGELY). She reports overall good health but expresses discomfort with the currentpressure settings of her PAP machine, particularly when it is set at 4.She feels as though she is suffocating and believes that increasing thepressure to 6 could be beneficial. She also mentions that she wakes upseveral times during sleep, especially when traveling in a car. She hasnot yet acquired a battery for her PAP machine. She recalls a time whenthe machine was set to 100% of the time, which felt overwhelming after shelost 40 pounds. [place] Scale is (out of 24): Total score: 3 DME: Jo Ann Ramirez Cardiology and sleep related problem list 1. ANGELY-AHI 16 2009 2. Diabetes 3. Hypertension 4. Hyperlipidemia- Intolerant to Zocor, Lipitor, and Crestor at highdoses(muscle aches and twitching) 5. CAD - coronary CTA 07/05/2019 Moderate coronary calcification with anAgatston score = 242 There are calcified plaque at the proximal portionof RCA causing minimal stenosis. There is mixed plaque at the midportion of the RCA causing mi d stenosis. There is a calcified plaque at the ostium of LAD causing minimal stenosis. 6. COVID 04/17/2022 7. Non-smoker 02/21/2023 echo-normal EF, borderline concentric hypertrophy, grade 1diastolic dysfunction, right ventricular cavity mildly dilated, mitralvalve thickening, mild pulmonary hypertension. Medications Discontinued During This Encounter Medication Reason HYDROcodone-acetaminophen (NORCO) 10-325 MG per tablet *Therapy completed tamsulosin (FLOMAX) 0.4 MG capsule 24 hr capsule *Therapy completed Continuous Blood Gluc Sensor (Dexcom G6 Sensor) *Therapy completed ketorolac (TORADOL) 10 MG tablet *Therapy completed Allergies Allergen Reactions Iodine Anaphylaxis Shellfish Allergy Anaphylaxis Sitagliptin Other (See Comments) Mood disturbance Esomeprazole Magnesium Diarrhea Statins Itching Sulfa Antibiotics Unknown - Low Severity Current Outpatient Medications: Continuous Glucose Internet Security Specialist (Dexcom G7 Internet Security Specialist) device, Use., Disp: ,Rfl: ibuprofen (ADVIL,MOTRIN) 800 MG tablet, Take 1 tablet by mouth Every 6(Six) Hours As Needed for Mild Pain., Disp: , Rfl: Jardiance 10 MG tablet tablet, , Disp: , Rfl: metFORMIN (GLUCOPHAGE) 1000 MG tablet, , Disp: , Rfl: metoprolol succinate XL (TOPROL-XL) 25 MG 24 hr tablet, , Disp: , Rfl: multivitamin (THERAGRAN) tablet tablet, Daily., Disp: , Rfl: Tioga-3 Fatty Acids (OMEGA 3 500 PO), Take by mouth Daily., Disp: ,Rfl: pioglitazone (ACTOS) 30 MG tablet, , Disp: , Rfl: simvastatin (ZOCOR) 10 MG tablet, , Disp: , Rfl: Vitamin E 400 units tablet, Daily., Disp: , Rfl: Past Medical History: Diagnosis Date Family hx of ischem heart dis and oth dis of the [facility] Hypercholesterolemia Kidney stones Mild CAD Sleep apnea Patient Active Problem List Diagnosis Type II diabetes mellitus Family hx of ischem heart dis and oth dis of the [facility] Hypercholesterolemia Essential hypertension Mild CAD ANGELY on CPAP Benign neoplasm of colon Gastroesophageal reflux disease Insomnia Meniere's disease Obesity Toxic effect of fish and shellfish Preop cardiovascular exam History reviewed. No pertinent family history. family history is not on file. Social History Socioeconomic History Marital status: Tobacco Use Smoking status: Never Passive exposure: Past Smokeless tobacco: Never Vaping Use Vaping status: Never Used Substance and Sexual Activity Alcohol use: Never Drug use: Never Sexual activity: Defer Vital Signs: Ht 152.4 cm (60 ) Wt 73 kg (161 lb) BMI 31.44 kg/m Estimated body mass index is 31.44 kg/m as calculated from thefollowing: Height as of this encounter: 152.4 cm (60 ). Weight as of this encounter: 73 kg (161 lb). Physical Exam Vitals reviewed. Constitutional: General: She is not in acute distress. HENT: Head: Normocephalic. Eyes: General: No scleral icterus. Cardiovascular: Rate and Rhythm: Normal rate. Pulmonary: Effort: Pulmonary effort is normal. Musculoskeletal: General: Normal range of motion. Cervical back: Normal range of motion. Skin: General: Skin is warm and dry. Neurological: Mental Status: She is alert and oriented to person, place, and time. Psychiatric: Mood and Affect: Mood normal. Thought Content: Thought content normal. Physical Exam General: Patient appears well and not in distress. Results Diagnostic Testing - [place] Sleepiness Scale (ESS) Score: 3 - EKG: Normal ECG 12 Lead Date/Time: 02/26/2025 4:08 PM Performed by: Samaria Hills APRN Authorized by: Samaria Hills APRN Comparison: compared withprevious ECG from 12/06/2023 Similar to previous ECG Rhythm: sinus rhythm Rate: normal BPM: 82 ST Segments: ST segments normal T Waves: T waves normal QRS axis: normal Other: no other findings Other findings: non-specific ST-T wave changes Clinical impression: abnormal EKG Assessment and Plan Diagnoses and all orders for this visit: 1. ANGELY on CPAP (Primary) Assessment & Plan: - AHI improved from 16 to 1.9. - [place] score is 3. - EKG results are normal. - Increase PAP machine pressure setting from 4 -12 to 6-12 for comfort. - Order for pressure adjustment will be faxed today; adjustment will bedone remotely by the company. - Contact office if new setting is uncomfortable or requires furtheradjustments. - Discussed risks, benefits, and alternatives of increasing pressuresetting, including potential discomfort with higher pressure and theoption to revert to previous settings if needed. - Benefiting from PAP therapy. Plan to continue. Orders: - PAP Therapy 2. Essential hypertension Assessment & Plan: - At goal. -Treating ANGELY will likely benefit blood pressure -EKG updated today Orders: - ECG 12 Lead Recommendations: ER if symptoms increase, Report if any new/changingsymptoms immediately, Sleep risks reviewed (driving, medical, sleep ,sedating agents), Sleep hygiene discussed, Increase pap therapy usage, andOSA precautions for anesthesia Follow Up Return in about 1 year (around 02/26/2026) for ANGELY. Patient or patient delivery representative verbalized consent for the use ofAmbient Listening during the visit with Samaria Hills APRN forchart documentation. 02/26/2025 16:03 EDT Samaria Hills APRN 02/26/2025 Please note that this explicitly excludes time spent on other separatebillable services such as performing procedures or test interpretation,when applicable. This note was created using dictation software whichoccasionally transcribes nonsensical phrases. Please contact the providerif any clarification is needed. us Samaria Hills APRN ECG ORDERABLES Fin al Result from Last 3 Months [place] [address] MEDICARE A & B [facility] OPTIONS Care Teams Clerical Order Filler Relationship Specialty Start Date End Date Dorothy Donahue APRN PCP - General Internal Medicine 02/21/23
--- OUTSIDE RECORDS SUMMARY | 2025-05-19 13:52 | XMS_ITS | Encounter Summary ---
Author Organization Healthcare Address [address] [place] [address] Care Team Providers Care Electrician Office Name Role Phone Shaun Mallory MD Primary Care Provider [phone] Encounter Details Date Type Department Care Team (Late st Contact Info) Description 11/21/2023 Orders Only External Location [address] [place] [address] Tawnya Lopez, DO [address] [place] [address] Social History Tobacco Use Types Packs/Day Years Used Date Smoking Tobacco: Never Assessed Comments Unknown Sex and Gender Information Value Date Recorded Sex Assigned at Female 02/21/2024 2:15 PM EDT Legal Sex Female 7:26 PM EDT Gender Identity Female 02/21/2024 2:15 PM EDT Sexual Orientation Not on file documented as of this encounter Plan of Treatment Upcoming Encounters Date Type Department Care Team (Late Contact Info) Description 06/09/2025 1:10 PM EDT Office Visit [facility] [address] [place] [address] Kiersten Hurtado M, FOXER [address] [place] [address] documented as of this encounter Procedures Procedure Name Priority Date/Time Associated Diagnosis Comments CT OUTSIDE IMAGES 11/21/2023 7:40 AM EDT documented in this encounter Results * CT OUTSIDE IMAGES (11/21/2023 7:40 AM EDT) Anatomical Region Laterality Modality Computed Tomogra phy 11/21/2023 7:40 AM EDT Tawnya Lopez DO IMG CT PROCEDURES Final Result documented in this encounter Visit Diagnoses Not on filedocumented in this encounter Care Teams Electrician Office Relationship Specialty Start Date End Date Shaun Mallory MD [address] [place] [address] PCP - General 01/08/21 documented as of this encounter
--- OUTSIDE RECORDS SUMMARY | 2025-05-19 13:52 | XMS_ITS | Clinical Summary ---
Author Organization [facility] Address [address] [place] [address] Care Team Providers Care Hand Ornament Maker Name Role Phone Shaun Mallory MD Primary Care Provider [phone] Allergies Active Allergy Reactions Criticality Noted Date Comments Esomeprazole Diarrhea Low 05/14/2015 Iodine Anaphylaxis High 08/15/2017 Shellfish Allergy Anaphylaxis High 12/27/2011 Sitagliptin Other - please docum ent in the comment field Medium 10/13/2016 Mood disturbance Statins Itching Medium 12/28/2009 Sulfa Drugs Other - please docum ent in the comment field Low 05/14/2015 Medications Jardiance 10 MG Take 1 tablet (10 mg) by mouth 1 (one) time each day. 4 Active fluconazole (Diflucan) 150 MG tablet 4 Active metFORMIN (Glucophage) 500 MG tablet Take 2 tablets (1,000 mg) by mouth twice a day. Active metoprolol succinate XL (Toprol-XL) 25 MG 24 hr tablet Take 1 tablet (25 mg) by mouth every night. 4 Active ondansetron (Zofran) 4 MG tablet 4 Active oxyCODONE (Roxicodone) 5 MG immediate release tablet 4 Active simvastatin (Zocor) 10 MG tablet Take 1 tablet (10 mg) by mouth every night. 4 Active Continuous Glucose Sensor (Dexcom G7 Sensor) misc CHANGE EVERY 10 DAYS DIRECTED 4 Active pioglitazone (Actos) 15 MG tablet Take 1 tablet (15 mg) by mouth every night. Active phenazopyridine (Pyridium) 100 MG tablet Take 1 tablet (100 mg) by mouth 3 (three) times a day if needed (stent discomfort). 15 tablet 4 Active tamsulosin (Flomax) 0.4 MG 24 hr capsule Take 1 capsule (0.4 mg) by mouth 1 (one) time each day if needed (stent discomfort). 10 capsule 4 Active Additional Information Patient not taking.Reported on 05/27/2024 chlorthalidone (Hygroton) 25 MG tabletIndicatio ns:Kidney stones,Hypercal ciuria Take 0.5 tablets (12.5 mg) by mouth 1 (one) time each day. 15 tablet 11 4 05/28/20 Active Encounters Date Type Department Care Team Description 05/07/2025 Telephone [facility] [address] [place] [address] Kiersten Hurtado, JASON from Last 3 Months Family History Medical History Relation Name Comments No Known Problems Brother No Known Problems Father No Known Problems Maternal Grandfather No Known Problems Maternal Grandmother No Known Problems Mother No Known Problems Other No Known Problems Paternal Grandfather No Known Problems Paternal Grandmother No Known Problems Sister Malig Hyperthermia Neg Hx Relation Name Status Comments Brother Father Maternal Grandfather Maternal Grandmother Mother Other Paternal Grandfather Paternal Grandmother Sister Social History Tobacco Use Types Packs/Day Years Used Date Smoking Tobacco: Never Smokeless Tobacco: Never Tobacco Cessation:Counseling Given: Not Answered Alcohol Use Standard Drinks/Week Comments Never 0 (1 standard drink = 0.6 oz pur e alcohol) PHQ-2 Answer Date Recorded Patient Health Questionnaire-2 Score 0 05/27/2024 Comments No Sex and Gender Information Value Date Recorded Sex Assigned at Female 02/21/2024 2:15 PM EDT Legal Sex Female 7:26 PM EDT Gender Identity Female 02/21/2024 2:15 PM EDT Sexual Orientation Not on file Last Filed Vital Signs Vital Sign Reading Time Taken Comments Blood Pressure 147/82 05/27/2024 1:42 PM EDT PROVIDER NOTIFIED. Pulse 93 05/27/2024 1:30 PM EDT Temperature 37.1 C (98.7 F) 05/27/2024 1:30 PM EDT Respiratory Rate 18 05/27/2024 1:30 PM EDT Oxygen Saturation 96% 05/27/2024 1:3 0 PM EDT Inhaled Oxygen Concentration - - Weight 73 kg (160 lb 15 oz) 05/27/2024 1:30 PM EDT Height 153.7 cm (5' 0.5 ) 05/27/2024 1: 30 PM EDT Body Mass Index 30.91 05/27/2024 1:30 PM EDT Plan of Treatment Upcoming Encounters Date Type Department Care Team (Late st Contact Info) Description 06/09/2025 1:10 PM EDT Office Visit [facility] [address] [place] [address] Noazalia, Kiersten M, BELLPERSON [address] [place] [address] Health Maintenance Due Date Last Done Comments [facility]-Bone Density Scan 1955 [facility]-Hepatitis C Screening 1955 [facility]-Medicare Annual Wellness (AWV) 1955 [facility]-Infant/Child/Adol SDOH Screenings 1955 [facility]- SDOH Screenings 1971 [facility]-Adult SDOH Screenings 1971 CT Colonography 1998 Colonoscopy 1998 FIT-DNA 1998 FIT 1998 FOBT 1998 Sigmoidoscopy 1998 [facility]-Colorectal Cancer Screening 1998 [facility]-Zoster Vaccines (2 of 3) 01/13/2014 11/18/2013 [facility]-Breast Cancer Screening 05/22/201704/29, 05/22/2015, 05/23/2013, Additional history exists [facility]-DTaP,Tdap,and Td Vaccines (2 - Td or Tdap) 03/08/2021 03/08/2011, 10/18/2002 [facility]-Pneumococcal Vaccine: 50+ Years (3 of 3 - PCV20 or PCV21) 10/13/2021 10/13/2016, 07/15/2009, 09/27/2007 [id number] Vaccine ( season) 2025 04/12/2022, 06/23/2021, 11/07/2020, Additional history exists [facility]-Influenza Vaccine (#1) 04/28/202505/28, 06/30/2009, 06/30/2009 [facility]-Depression Screening 05/27/2025 05/27/2024 [facility]-RSV Vaccine: 60+ Years or (1 - 1-dose 75+ series) 2028 [facility]-Obesity Intervention Completed 05/27/2024 HPV Vaccines Aged Out No longer eligi ble based on patient's age to complete this topic [facility]-HIB Vaccines Aged Out No longer e ligible based on patient's age to complete this topic [facility]-Hepatitis A Vaccines Aged Out No longer eligible based on patient's age to complete this topic [facility]-IPV Vaccines Aged Out No longer e ligible based on patient's age to complete this topic [facility]-Rotavirus Vaccines Aged Out No lo nger eligible based on patient's age to complete this topic Medical Devices Implanted Type Area Debeader Device Identifier Shelf Expiration Date Model / Serial / Lot Stent Ureteral Double Pigtail Pos 5fr 22cm - [id number] Implanted:Qty: 1 on 02/21/2024 by Milton Garcia MD at [facility] [id number] 10/25/2026 [id number] / / [id number] Insurance [facility] MEDIC[facility] Member Subscriber Plan / Payer (Ef fective 2018-Present) Name:Prachi Bosch Member ID:[id number] Relation to Subscriber:Self Name:Prachi Bosch Subscriber ID:[id number] Payer ID:MEDICARE Group ID:Not on file Type:Medicare Address: [place] [phone] Advance Directives Documents on File Type Date Recorded 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
--- OUTSIDE RECORDS SUMMARY | 2025-05-19 13:52 | XMS_ITS | Encounter Summary ---
Author Organization [facility] Address [address] [place] [address] Care Team Providers Care Seedling Sorter Name Role Phone Shaun Mallory MD Primary Care Provider [phone] Encounter Details Date Type Department Care Team (Late st Contact Info) Description 12/08/2023 Orders Only External Location [address] [place] [address] Provider, External Social History Tobacco Use Types Packs/Day Years [...] Description 06/09/2025 1:10 PM EDT [facility] [address], [address] [place] [address] Noomen, Kiersten M, PRIMARY TEACHER [address] [place] [address] documented as of this encounter Procedures Procedure Name Priority Date/Time Associated Diagnosis Comments XR OUTSIDE IMAGES 12/08/2023 7:30 AM EDT documented in this encounter Results * XR OUTSIDE IMAGES (12/08/2023 7:30 AM EDT) Anatomical Region Laterality Modality Radiographic Celeste ging 12/08/2023 7:30 AM EDT us External Provider IMG XR PROCEDURES Final Result documented in this encounter Visit Diagnoses Not on filedocumented in this encounter Care Teams Seedling Sorter Relationship Specialty Start Date End Date Shaun Mallory MD [address] [facility] [place] [address] PCP - General 01/08/21 documented as of this encounter
--- OUTSIDE RECORDS SUMMARY | 2025-05-19 13:52 | XMS_ITS | Encounter Summary ---
Author Organization Healthcare Address [address] [place] [address] Care Team Providers Care Recovery Room Nurse Name Role Phone Shaun Mallory MD Primary Care Provider [phone] Encounter Details Date Type Department Care Team (Late st Contact Info) Description 11/27/2023 Orders Only External Location [address] [place] [address] Dorothy Donahue, PROJECT LEADER [address] [place] [address] Social History Tobacco Use Types Packs/Day Years [...] Description 06/09/2025 1:10 PM EDT Office Visit [facility] [address], [address] [place] [address] Kiersten Hurtado, PROJECT LEADER [address] [place] [address] documented as of this encounter Procedures Procedure Name Priority Date/Time Associated Diagnosis Comments XR OUTSIDE IMAGES 11/27/2023 11:25 AM EDT documented in this encounter Results * XR OUTSIDE IMAGES (11/27/2023 11:25 AM EDT) Anatomical Region Laterality Modality Radiographic Celeste ging 11/27/2023 11:2 5 AM EDT Dorothy Donahue PROJECT LEADER IMG XR PROCEDURES Final Re sult documented in this encounter Visit Diagnoses Not on filedocumented in this encounter Care Teams Recovery Room Nurse Relationship Specialty Start Date End Date Shaun Mallory MD [address] [facility] [address] PCP - General 01/08/21 documented as of this encounter
--- OUTSIDE RECORDS SUMMARY | 2025-05-19 13:52 | XMS_ITS | Encounter Summary ---
Author Organization [facility] Address [address] [place] [address] Care Team Providers Care Advertising Solicitor Name Role Phone Shaun Mallory MD Primary Care Provider [phone] Encounter Details Date Type Department Care Team (Late st Contact Info) Description 12/10/2023 Orders Only External Location [address] [place] [address] Provider, External Social History Tobacco Use Types [...] Description 06/09/2025 1:10 PM EDT Office Visit [facility] [address], [address] [place] [address] Noomen, Kiersten M, GLAZE HANDLER [address] [place] [address] documented as of this encounter Procedures Procedure Name Priority Date/Time Associated Diagnosis Comments XR ABDOMEN OUTSIDE IMAGES 12/10/2023 10:43 AM EDT documented in this encounter Results * XR ABDOMEN OUTSIDE IMAGES (12/10/2023 10:43 AM EDT) Anatomical Region Laterality Modality Radiographic Celeste ging 12/10/2023 10:4 3 AM EDT us External Provider IMG XR PROCEDURES Final Result documented in this encounter Visit Diagnoses Not on filedocumented in this encounter Care Teams Advertising Solicitor Relationship Specialty Start Date End Date Shaun Mallory MD [address] [place] [address] PCP - General 01/08/21 documented as of this encounter
--- OUTSIDE RECORDS SUMMARY | 2025-05-19 13:52 | XMS_ITS | Referral Summary ---
Author Organization [employer] ([place], [place], [place], [place]) Address [address] [place] [address] Care Team Providers Care Computer Builder Name Role Phone Donahue Dorothy GOMEZ Primary Care Provider Allergies Active Allergy Reactions Criticality Noted Date Comments Iodine Anaphylaxis High 12/28/2009 Was a shellfish reaction Medications Jardiance 10 mg tablet Take 1 tablet (10 mg total) by mouth daily. 10/16/2023 Active HYDROcodone-sarath taminophen (NORCO 10-325) 10-325 mg per tablet Take 1 tablet by mouth every 4 (four) hours as needed. Max Daily Amount: 6 tablets 11/22/2023 Active metFORMIN (GLUCOPHAGE) 1000 MG tablet 01/27/2023 Acti ve metoprolol succinate (TOPROL-XL) 25 MG 24 hr tablet 01/27/2023 Act terrance phenazopyridine (PYRIDIUM) 100 MG tablet Take 1 tablet (100 mg total) by mouth 4 (four) times daily as needed. 11/22/2023 Active simvastatin (ZOCOR) 10 MG tablet 11/08/2022 Active pioglitazone (ACTOS) 30 MG tablet 01/27/2023 Active Active Problems Problem Noted Date Diagnosed Date CAD (coronary artery disease) 12/08/2023 HTN (hypertension) 12/08/2023 Diabetes 12/08/2023 Sleep apnea 12/08/2023 Social History Tobacco Use Types Packs/Day Years Used Date Smoking Tobacco: Never Smokeless Tobacco: Never Tobacco Cessation:Counseling Given: No Alcohol Use Standard Drinks/Week Comments Never 0 (1 standard drink = 0.6 oz pur e alcohol) Food Insecurity Answer Date Recorded Food run out past 12 months Not on file 08/2023 Food did not last past 12 months Not on file 11/27/2023 Employment Answer Date Recorded Help finding and keeping a job Not on file 0 11/27/2023 Family and Community Support Answer Armen e Recorded Help with Day to Day Activities Not on file 11/27/2023 Feeling Lonely or Isolated Not on file 11/26 Educational Attainment Answer Date Valeriy rded Speak language other than [place] at home Not on file 11/27/2023 Want help with school or training Not on file 11/27/2023 Substance Use Answer Date Recorded Used prescription meds for non-medical reasons N ot on file 11/27/2023 Used illegal drugs past 12 months Not on file 11/27/2023 Comments No Sex and Gender Information Value Date Recorded Sex Assigned at Not on file Legal Sex Female 9:46 AM CDT Gender Identity Not on file Sexual Orientation Not on file Last Filed Vital Signs Vital Sign Reading Time Taken Comments Blood Pressure 129/63 12/08/2023 10:40 AM EDT Pulse 86 12/08/2023 10:40 AM EDT Temperature 36.2 C (97.2 F) 12/08/2023 10:16 AM EDT Respiratory Rate 18 12/08/2023 10:23 AM EDT Oxygen Saturation 98% 12/08/2023 10:40 AM EDT Inhaled Oxygen Concentration - - Weight 69.9 kg (154 lb) 12/08/2023 8:22 AM EDT Height 152.4 cm (5') 12/08/2023 8:22 AM EDT Body Mass Index 30.08 12/08/2023 8:22 AM EDT Plan of Treatment Not on file Medical Devices Implanted Type Area Viscosity Worker Device Identifier Shelf Expiration Date Model / Serial / Lot Stent Uret Percflx + 4.8frx22 [id number] - [id number] Implanted:Qty : 1 on 12/08/2023 by Hector Emerson MD at [facility] IMPLANTS Left: Ureter [employer] [employer]:UROLOGY/SOLAR HOT WATER INSTALLER ECOLOGY [id number] 06/08/2026 [id number] Insurance MEDICARE PART A B Advance Directives For more information, please contact: [phone] * Full Code (Latest Code Status on File) Date Activated Date Inactivated Comments 12/08/2023 7:19 AM 12/08/2023 12:02 PM -Attempt Re suscitation if person has no pulse and is not breathing. -If no pulse or not breathing attempt CPR/CODE. -Call Rapid Response if patient is in distress. Care Teams Computer Builder Relationship Specialty Start Date End Date Dorothy Donahue APRN [address] [address] PCP - General Nurse Practitioner 11/27/23
--- OUTSIDE RECORDS SUMMARY | 2025-05-19 13:53 | XMS_ITS | Encounter Summary ---
Author Organization [facility] Address [address] [place] [address] Care Team Providers Care Outside Plant Supervisor Name Role Phone Shaun Mallory MD Primary Care Provider Encounter Details Date Type Department Care Team (Late st Contact Info) Description 05/07/2025 Telephone [facility] [address], [address] [place] [address] Kiersten Hurtado M, WATER INSPECTOR [address] [place] [address] Social History Tobacco Use Types Packs/Day Years Used Date Smoking Tobacco: Never Smokeless Tobacco: Never Alcohol Use Standard Drinks/Week Comments Never 0 [...] on file documented as of this encounter Miscellaneous Notes * Telephone Encounter - Radha Perry - 05/07/2025 9:31 AM EDT Clinical Concern/Question Reason for Call: Pt called, wanting to get franklin to see Dr. Hurtado. I franklin her, but she is wondering if there is a need for scans as well? Says she is asymptomatic but wants to make sure. She is asking for a call back. Thanks! Best contact number: [phone] (mobile) Optimal time of day to reach caller: ANYTIME Additional comments/information from caller: None Note: Please do not reply to this message. Follow-up communication and further actions as a result of this message need to be communicated with the patient directly, if the patient is not active onMyChart. If the patient is active on MyChart, they will receive notification of the communication/outcome via [employer]. documented in this encounter Plan of Treatment Upcoming Encounters Date Type Department Care Team (Late st Contact Info) Description 06/09/2025 1:10 PM EDT Office Visit [facility] [address] [place] [address] NoKiersten vieyra M, WATER INSPECTOR [address] [facility] [address] [place] [address] documented as of this encounter Visit Diagnoses Not on filedocumented in this encounter Additional Health Concerns Assessment Noted Time A fall risk assessment has been complete d for the patient 05/27/2024 1:35 PM EDT A Body Mass Index follow-up plan has been documented for the patient 05/28/2024 3:10 PM EDT documented as of this encounter Care Teams Outside Plant Supervisor Relationship Specialty Start Date End Date Shaun Mallory MD [facility] [place] [address] PCP - General 01/08/21 documented as of this encounter
--- OUTSIDE RECORDS SUMMARY | 2025-05-19 13:53 | XMS_ITS | Clinical Summary ---
Author Organization [employer] ([place], [place], [place], [place]) Address [address] [place] [address] Care Team Providers Care Brass Sorter Name Role Phone DonahueKaeDorothy JASON Primary Care Provider Allergies Active Allergy Reactions [...] Date Valeriy rded Speak language other than [place] at home Not on file 11/27/2023 Want [...] 12/08/2023 8:22 AM EDT Plan of Treatment Health Maintenance Due Date Last Done Comments CT Colonography 1953 Colonoscopy 1953 Colorectal Cancer Screening 1953 DXA SCAN 1953 Diabetic Kidney Health Evalu ation (KED) 1953 FOBT/FIT 1953 Fit-DNA (Cologuard) 1953 Sigmoidoscopy 1953 Diabetic Eye Exam 1963 Depression Screening (12+) 1965 Hepatitis C Screening 1971 Respiratory Syncytial Virus (RSV) Adult or (1 - Risk 60-74 years 1-dose series) 2013 Shingles Vaccine (Zoster) (2 of 2) 01/13/20142013 Breast Cancer Screening 05/22/2017 05/22/20 15, 05/22/2015, 05/22/2015, Additional history exists Medicare Initial AWV [id number] 06/29/2019 DTAP/TDAP/TD VACCINES (2 - T d or Tdap) 03/08/2021 03/08/2011 Pneumococcal 50+ years (3 of 3 - PCV20 or PCV21) 10/13/2021 10/13/2016, 07/15/2009, 09/27/2007 Hemoglobin A1C 12/08/2023 Falls Risk Screening 08/28/2024 Tobacco Cessation Counseling and Screening (12+) 12/07/2024 12/08/2023 COVID-19 VACCINE (7 - 2024-2 6 season) 2025 06/28/2023, 07/05/2022, 04/12/2022, Additional history exists Influenza Vaccine (#1) 2025 3, 06/02/2021, 04/21/2020, Additional history exists Medical Devices Implanted Type Area Director Oracle Database Device Identifier Shelf Expiration Date Model / Serial / Lot Stent Uret Percflx + 4.8frx22 [id number] - [id number] Implanted:Qty : 1 on 12/08/2023 by Hector Emerson MD at [facility] IMPLANTS Left: Ureter [place] [employer]:UROLOGY/TALENT PROGRAM MANAGER ECOLOGY [id number] 06/08/2026 [id number] Insurance [place] [address] [place] [address] SUPP Advance Directives For more information, please contact: [phone] * Full Code (Latest Code Status on File) Date Activated Date Inactivated Comments 12/08/2023 7:19 AM 12/08/2023 12:02 PM -Attempt Re suscitation if person has no pulse and is not breathing. -If no pulse or not breathing attempt CPR/CODE. -Call Rapid Response if patient is in distress. Care Teams Brass Sorter Relationship Specialty Start Date End Date Dorothy Donahue APRN [id number] PCP - General Nurse Practitioner 11/27/23
--- OUTSIDE RECORDS SUMMARY | 2025-05-19 13:53 | XMS_ITS | Clinical Summary ---
Author Organization [facility] Address [address] [facility] [place] [address] Phone Support Name Relationship Address Phone Brady Means Personal Relationship [address] [place] [address] Per Pt None Personal Relationship Unknown Unavai lable Care Team Providers Care Television Mechanic Name Role Phone Unavailable Primary Care Provider Unavailabl e Allergies Active Allergy Reactions Criticality Noted Date Comments Shellfish Containing Products Anaphylaxis High 12/26 Medications losartan (COZAAR) 100 mg tablet Take 100 mg by mouth daily. Active pioglitazone (ACTOS) 45 mg tablet Take 45 mg by mouth daily. Active metFORMIN (GLUCOPHAGE) 500 mg tablet Take 1,000 mg by mouth 2 times daily. At lunch and dinner Active OMEGA-3S/DHA/EP A/FISH OIL (OMEGA 3 ORAL) Take by mouth daily. Active Idjfvkq-Nes-O Rzqpdkk-F9-Bot8 1 (WOMEN'S COMPLEX) Tab Take by mouth daily. Active VITAMIN E MIXED/TOCOTRIEN OL (VITAMIN E COMPLEX ORAL) Take by mouth daily. Active ESTROGENS,CONJU GATED (PREMARIN VAGL) Place vaginally. Vaginal cream twice a week Active colesevelam (WELCHOL) 625 mg tablet Take 625 mg by mouth daily. 4 pills once a day Active MAGNESIUM ORAL Take by mouth daily. Active MG TRISILICATE/ALH /NAHCO3/AA (GAVISCON ORAL) Take by mouth as needed. Active Surgical History Surgery Date Site/Laterality Comments ANKLE SURGERY 2001 left SECTION 1981, 1986 COLONOSCOPY HYSTERECTOMY 1994 Medical History Medical History Date Comments Hypertension Diabetes mellitus (HCC) Unspecified sleep apnea CPAP Orthopnea Pneumonia Hyperlipidemia borderline Heartburn GERD (gastroesophageal reflux disease) Meniere disease 1988 right ear Motion sickness Shingles 11/25/2011 left leg , leg c lear for the last 2 weeks Social History Tobacco Use Types Packs/Day Years Used Date Smoking Tobacco: Never Smokeless Tobacco: Never Alcohol Use Standard Drinks/Week Comments No 0 (1 standard drink = 0.6 oz pur e alcohol) Comments No Sex and Gender Information Value Date Recorded Sex Assigned at Not on file Legal Sex Female 4:13 AM EDT Gender Identity Not on file Sexual Orientation Not on file Obstetrics History Last Filed Vital Signs Vital Sign Reading Time Taken Comments Blood Pressure 115/75 12/30/2011 4:33 PM EDT Pulse 79 12/30/2011 4:33 PM EDT Temperature 36.4 C (97.6 F) 12/30/2011 4:28 PM EDT Respiratory Rate 16 12/30/2011 4:33 PM EDT Oxygen Saturation 94% 12/30/2011 4:33 PM EDT Inhaled Oxygen Concentration - - Weight 76.7 kg (169 lb) 12/30/2011 2:51 PM EDT Height 153.7 cm (5' 0.5 ) 12/27/2011 11:21 AM ED T Body Mass Index 32.46 12/27/2011 11:21 AM EDT Plan of Treatment Health Maintenance Due Date Last Done Comments Annual Wellness Exam 1956 Hepatitis C Screening 1971 DTaP/TDaP/Td (1 - Tdap) 1972 Breast Cancer Screening 1993 Cologuard 1998 Colon Cancer Screening 1998 Colonoscopy 1998 FIT 1998 Sigmoidoscopy 1998 Virtual Colonography 1998 Pneumococcal Vaccine 50+ (1 of 1 - PCV) 2003 Zoster (1 of 2) 2003 Bone Density Screening 2018 COVID-19 Vaccine (1 - 2023-2 5 season) 2025 Influenza Vaccine (#1) 2025 Hepatitis B Vaccine Aged Out No longe r eligible based on patient's age to complete this topic Meningococcal B Vaccine Aged Out No l onger eligible based on patient's age to complete this topic Insurance [facility]
[2025-05-19 16:25] LABS: Albumin Level 4.8 g/dl (3.5-5.0); Chloride 98 mmol/L (98-107); Potassium 4.4 mmoL/L (3.5-5.1); Sodium 138 mmol/L (136-145)
[2025-05-19 16:28] LABS: Alanine Aminotransferase 18 U/L (12-78); Albumin/Globulin Ratio 2.2 (1.1-1.8); Alkaline Phosphatase 170 U/L (38-126); Anion Gap 17.4 mEq/L (5-15); Aspartate Amino Transferase 30 U/L (14-36); Bilirubin,Total 0.5 mg/dl (0.2-1.3); Blood Urea Nitrogen 15 mg/dl (7-17); Carbon Dioxide 27 mmol/L (22.0-30.0); Cholesterol 179 mg/dl (140-200); Creatinine,Serum 0.50 mg/dl (0.52-1.04); Estimated Glomerular Filt Rate 122 ml/min (>60); GFR (African American) 147 ML/MIN (>60); Globulin 2.2 g/dL (1.3-3.2); Glucose 176 mg/dl (74-100); Total Protein,Serum 7.0 g/dl (6.3-8.2); Triglycerides 69 mg/dl (30-150)
[2025-05-19 16:29] LABS: Calcium 9.1 mg/dl (8.4-10.2); HDL Cholesterol 85 mg/dl (40-60); Magnesium 2.0 mg/dl (1.6-2.3)
[2025-05-19 17:00] LABS: Thyroid Stimulating Hormone 0.86 uIU/mL (0.465-4.68)
[2025-05-19 22:14] LABS: Hemoglobin A1C 8.1 % (4.0-6.0)
== END 2025-05-19 23:59 | disposition home or self-care (01) ==
LOC: LAB.DROPOF 13:50
PROVIDERS: PCP Nurse Practitioner Family; Visit Provider Nurse Practitioner Family
DX: E78.5 Hyperlipidemia, unspecified (principal); E11.9 Type 2 diabetes mellitus without complications; I10 Essential (primary) hypertension
CPT/HCPCS: 80053; 80061; 83036; 83735; 84443

== ENCOUNTER 2025-05-29 13:31 | Outpatient (CLI) | payer MEDICARE, SELFPAY ==
--- OUTSIDE RECORDS SUMMARY | 2025-05-29 13:36 | XMS_ITS | Encounter Summary ---
Author Organization [facility] Address [address] [place] [address] Care Team Providers Care Diploma Maker Name Role Phone Shaun Mallory MD Primary Care Provider [phone] Encounter Details Date Type Department Care Team (Late st Contact Info) Description 11/27/2023 Orders Only External Location [address] [place] [address] Dorothy Donahue, CAR BODY INSPECTOR [address] [place] [address] Social History Tobacco Use Types Packs/Day Years [...] Description 06/09/2025 1:10 PM EDT Office Visit [facility] [address] [place] [address] Kiersten Hurtado, CAR BODY INSPECTOR [address] [place] [address] documented as of this encounter Procedures Procedure Name Priority Date/Time Associated Diagnosis Comments XR OUTSIDE IMAGES 11/27/2023 11:25 AM EDT documented in this encounter Results * XR OUTSIDE IMAGES (11/27/2023 11:25 AM EDT) Anatomical Region Laterality Modality Radiographic Celeste ging 11/27/2023 11:2 5 AM EDT Dorothy Donahue CAR BODY INSPECTOR IMG XR PROCEDURES Final Re sult documented in this encounter Visit Diagnoses Not on filedocumented in this encounter Care Teams Diploma Maker Relationship Specialty Start Date End Date Shaun Mallory MD [address] [facility] [place] [address] PCP - General 01/08/21 documented as of this encounter
--- OUTSIDE RECORDS SUMMARY | 2025-05-29 13:36 | XMS_ITS | Clinical Summary ---
Author Organization [facility] Address [facility] [address] [place] [address] Phone Support Name Relationship Address Phone Brady Means Personal Relationship [address] [place] [address] Per Pt None Personal Relationship Unknown Unavai lable Care Team Providers Care Surgical Supervisor Name Role Phone Unavailable Primary Care Provider [...] 3 ORAL) Take by mouth daily. Active Vbeffwz-Ifw-W Gpawsds-N4-Fuk5 1 (WOMEN'S COMPLEX) Tab Take by mouth [...]
--- OUTSIDE RECORDS SUMMARY | 2025-05-29 13:36 | XMS_ITS | Encounter Summary ---
Author Organization [facility] Address [address] [place] [address] Care Team Providers Care Information Technology Audit Manager Name Role Phone Shaun Mallory MD Primary Care Provider [phone] Encounter Details Date Type Department Care Team (Late st Contact Info) Description 11/21/2023 Orders Only External Location [address] [place] [address] Tawnya Lopez, DO [address] [place] [address] Social History Tobacco Use Types [...] Description 06/09/2025 1:10 PM EDT Office Visit [place] [facility] [address] [place] [address] Kiersten Hurtado M, PRINTER FLOOR COVERING ASSISTANT [address] [place] [address] documented as of this encounter [...] on filedocumented in this encounter Care Teams Information Technology Audit Manager Relationship Specialty Start Date End Date Shaun Mallory MD [address] [place] [address] PCP - General 01/08/21 documented as of this encounter
--- OUTSIDE RECORDS SUMMARY | 2025-05-29 13:36 | XMS_ITS | Clinical Summary ---
Author Organization [facility] Address [address] [place] [address] Care Team Providers Care Inspector Conveyor Line Name Role Phone Godfrey Dorothy GOMEZ Primary Care Provider [phone] Allergies Active Allergy Reactions Criticality Noted Date Comments Esomeprazole Magnesium Diarrhea 05/14/2015 Iodine Anaphylaxis High 12/28/2009 Shellfish Allergy Anaphylaxis High 12/27/2011 Sitagliptin Other (See Comments) Medium 10/13/2016 Mood disturbance Statins Itching 12/28/2009 Sulfa Antibiotics Unknown - Low Severity 05/14/2015 Medications multivitamin (THERAGRAN) tablet tablet Daily. Active Dalton-3 Fatty Acids (OMEGA 3 500 PO) Take [...] for Mild Pain. 11/22/2023 Active Continuous Glucose Import Coordination And Production Head (Dexcom G7 Import Coordination And Production Head) device Use. Act terrance Active Problems Problem Noted Date Diagnosed Date Preop cardiovascular exam 12/06/2023 Obesity 02/21/2023 ANGELY on CPAP 07/30/2015 Overview (02/21/2023): AHI 66, RDI 86, desatnadir 79% Overview: AHI 66, RDI 86, desatnadir 79% Assessment & Plan (02/26/2025 4:04 PM EDT): - AHI improved from 16 to 1.9. - [place] score is 3. - EKG results are [...] Age at diagnosis: 2006 Prior visit with advertising director/educator: Yes 2006 Cardiovascular risk factors: dyslipidemia, diabetes [...] Description 02/26/2025 10:30 AM EDT Office Visit [facility] [address] [address] [place], JASON ANGELY on CPAP (Primary Dx); Essential hypertension 02/26/2025 Patient rounding ([facility]) [facility] [address] [address] Samaria Hills APRN 02/26/2025 Travel from Last [...] Description 03/04/2026 10:30 AM EDT Office Visit [facility] [address] [place] [place] [address] Samaria Hills APRN [address] [place] [address] Health Maintenance Due Date Last [...] which felt overwhelming after shelost 40 pounds. [place] Scale is (out of 24): Total score: [...] Low Severity Current Outpatient Medications: Continuous Glucose Import Coordination And Production Head (Dexcom G7 Import Coordination And Production Head) device, Use., Disp: ,Rfl: ibuprofen (ADVIL,MOTRIN) 800 [...] (THERAGRAN) tablet tablet, Daily., Disp: , Rfl: Dalton-3 Fatty Acids (OMEGA 3 500 PO), Take by mouth Daily., Disp: ,Rfl: pioglitazone (ACTOS) 30 MG tablet, , Disp: , Rfl: simvastatin (ZOCOR) 10 MG tablet, , Disp: , Rfl: Vitamin E 400 units tablet, Daily., Disp: , Rfl: Past Medical History: Diagnosis Date Family hx of ischem heart dis and oth dis of the [facility] Hypercholesterolemia Kidney stones Mild CAD Sleep apnea Patient Active Problem List Diagnosis Type II diabetes mellitus Family hx of ischem heart dis and oth dis of the [facility] Hypercholesterolemia Essential hypertension Mild CAD ANGELY on [...] not in distress. Results Diagnostic Testing - [place] Sleepiness Scale (ESS) Score: 3 - EKG: [...] AHI improved from 16 to 1.9. - [place] score is 3. - EKG results are [...] (around 02/26/2026) for ANGELY. Patient or patient termite control representative verbalized consent for the use ofAmbient [...] Result from Last 3 [place] [address] MEDICARE A & B [facility] Care Teams Inspector Conveyor Line Relationship Specialty Start Date End Date Dorothy Donahue APRN PCP - General Internal Medicine 02/21/23
--- OUTSIDE RECORDS SUMMARY | 2025-05-29 13:36 | XMS_ITS | Encounter Summary ---
Author Organization [facility] Address [address] [place] [address] Care Team Providers Care Sensitized Paper Tester Name Role Phone Shaun Mallory MD Primary Care Provider [phone] Encounter Details Date Type Department Care Team (Late st Contact Info) Description 05/07/2025 Telephone [facility] [address] [place] [address] Kiersten Hurtado M, BUNDLE COLLECTOR [address] [place] [address] Social History Tobacco Use Types [...] a call back. Thanks! Best contact number: [phone] (mobile) Optimal time of day to reach caller: ANYTIME Additional comments/information from caller: None Note: Please do not reply to this message. Follow-up communication and further actions as a result of this message need to be communicated with the patient directly, if the patient is not active onMyChart. If the patient is active on MyChart, they will receive notification of the communication/outcome via Reamazehart. documented in this encounter Plan of Treatment Upcoming Encounters Date Type Department Care Team (Late st Contact Info) Description 06/09/2025 1:10 PM EDT Office Visit [facility] Urology [address] [place] [address] NoKiersten vieyra M, BUNDLE COLLECTOR [address] [facility] [address] [place] [address] documented as of this encounter Visit Diagnoses Not on filedocumented in this encounter Additional Health Concerns Assessment Noted Time A fall risk assessment has been complete d for the patient 05/27/2024 1:35 PM EDT A Body Mass Index follow-up plan has been documented for the patient 05/28/2024 3:10 PM EDT documented as of this encounter Care Teams Sensitized Paper Tester Relationship Specialty Start Date End Date Shaun Mallory MD [facility] [place] [address] PCP - General 01/08/21 documented as of this encounter
--- OUTSIDE RECORDS SUMMARY | 2025-05-29 13:36 | XMS_ITS | Clinical Summary ---
Author Organization [facility] Address [address] [place] [address] Care Team Providers Care Chief Of Planning Name Role Phone Shaun Mallory MD Primary Care Provider [phone] Allergies Active Allergy Reactions Criticality Noted Date [...] day if needed (stent discomfort). 10 capsule Active Additional Information Patient not taking.Reported on 05/27/2024 chlorthalidone (Hygroton) 25 MG tabletIndicatio ns:Kidney stones,Hypercal ciuria Take 0.5 tablets (12.5 mg) by mouth 1 (one) time each day. 15 tablet 11 4 Active Encounters Date Type Department Care Team Description 05/07/2025 Telephone [facility] Urology [address] [place] [address] Kiersten Hurtado APRN from Last 3 Months Family History Medical [...] Office Visit [facility] [address] [place] [address] Noazalia, Kiersten M, SUPERVISOR [employer] [address] [place] [address] Health Maintenance Due Date Last Done Comments [facility]-Bone Density Scan 1955 [facility]-Hepatitis C Screening 1955 [facility]-Medicare Annual Wellness (AWV) 1955 [facility]-/Child/Adol SDOH Screenings 1955 [facility]- SDOH Screenings 1971 [...] PCV20 or PCV21) 10/13/2021 10/13/2016, 07/15/2009, 09/27/2007 [id number] Vaccine (5 - 5-26 season) 2025 04/12/2022, 06/23/2021, 11/07/2020, Additional history [...] this topic Medical Devices Implanted Type Area Spanish Teacher Device Identifier Shelf Expiration Date Model / Serial / Lot Stent Ureteral Double Pigtail Pos 5fr 22cm - [id number] Implanted:Qty: 1 on 02/21/2024 by Milton Garcia MD at [facility] [id number] 10/25/2026 [id number] / / [id number] Insurance [facility] MEDICARE Advance Directives Documents on File Type Date Recorded Patient Cigarette Filter Inspector Expl anation Advance Directives and Livin g Will 02/22/2024 7:54 AM Advance Directives and Livin g Will 02/21/2024 Care Teams Chief Of Planning Relationship Specialty Start Date End Date Shaun Mallory MD [address] [place] [address] PCP - General 01/08/21
--- OUTSIDE RECORDS SUMMARY | 2025-05-29 13:36 | XMS_ITS | Encounter Summary ---
Author Organization [facility] Address [address] [place] [address] Care Team Providers Care Medical Housekeeper Name Role Phone Shaun Mallory MD Primary Care Provider [phone] Encounter Details Date Type Department Care Team (Late st Contact Info) Description 12/08/2023 Orders Only External Location [address] [place] [address] Provider, External Social History Tobacco Use Types [...] Description 06/09/2025 1:10 PM EDT Office Visit [facility] [address] [place] [address] Noomen, Kiersten M, SENIOR CONSUMER INSIGHTS CONSULTANT [address] [place] [address] documented as of this encounter Procedures Procedure [...] on filedocumented in this encounter Care Teams Medical Housekeeper Relationship Specialty Start Date End Date Shaun Mallory MD [address] [facility] [place] [address] PCP - General 01/08/21 documented as of this encounter
--- OUTSIDE RECORDS SUMMARY | 2025-05-29 13:36 | XMS_ITS | Encounter Summary ---
Author Organization [facility] Address [address] [place] [address] Care Team Providers Care Woodworker Name Role Phone Shaun Mallory MD Primary Care Provider Encounter Details Date Type Department Care Team (Late st Contact Info) Description 12/10/2023 Orders Only External Location [address] [place] [address] Provider, External Social History Tobacco Use Types [...] Description 06/09/2025 1:10 PM EDT Office Visit [facility] [address] [place] [address] Noomen, Kiersten M, DYE FEEDER [address] [place] [address] documented as of this encounter Procedures Procedure [...] on filedocumented in this encounter Care Teams Woodworker Relationship Specialty Start Date End Date Shaun Mallory MD [address] [place] [address] PCP - General 01/08/21 documented as of this encounter
--- NOTE | 2025-05-29 13:45 | MM_ITS ---
PROCEDURE INFORMATION: Exam: MG Bilateral Screening 3D Mammography Exam date and time: 05/29/2025 1:39 PM Age: 69 years old Clinical indication: Screening mammogram TECHNIQUE: Imaging protocol: Bilateral Screening tomosynthesis and 2D mammography including computer-aided detection (CAD) when performed. COMPARISON: 1. MG MM DIG SCREENING MAMM BI W/CAD 07/11/2023 9:37 AM 2. MG MM DIG SCREENING MAMM BI W/CAD 02/26/2021 8:26 AM 3. MG MM DIG SCREENING MAMM BI W/CAD 06/24/2019 4:21 PM 4. MG DMSB DIG MAMM-SCREEN XENIA W/CAD 06/08/2017 9:00 AM FINDINGS: MAMMOGRAPHY: Breast composition: There are scattered areas of fibroglandular density. Mass: None. Architectural distortion: No new or suspicious architectural distortion. Calcifications: No new or suspicious calcifications are present Asymmetric density: No new or suspicious asymmetric density is present Skin thickening: None. Axillary adenopathy: None. IMPRESSION: No mammographic evidence of malignancy. Recommend annual screening mammography unless otherwise clinically indicated. ASSESSMENT: BI-RADS category 1: Negative.
== END 2025-05-29 23:59 | disposition home or self-care (01) ==
LOC: RAD 13:32
PROVIDERS: PCP Nurse Practitioner Family; Visit Provider Nurse Practitioner Family
DX: Z12.31 Encounter for screening mammogram for malignant neoplasm of breast (principal); R92.323 Mammographic fibroglandular density, bilateral breasts
CPT/HCPCS: 77063; 77067